=== PATIENT | female | born 1940 | race Caucasian/White ===

== ENCOUNTER 2017-02-24 09:41 | Inpatient (IN) ==
[2017-02-24] MEDS ORDERED: SODIUM CHLORIDE 0.9% 1,000 ML IV STA (10:01)
--- NOTE | 2017-02-24 10:11 | Emergency Department Note ---
Gia Sol Hilary, am scribing for, and in the presence of, Rogelio Grey MD 10: 04. Matilda Sol James D, MD, personally performed the services described in this documentation, ascribed by Zenia Nielsen in my presence, and it is both accurate and complete . Arrival - Arrival Chief Complaint: Non-Specific Stated Complaint: bp,shaking,swelling ED Nursing Triage Note: reports recently in hospital for sepsis and finished antibiotics today. family reports that pt started shaking this am and had fever and is nauseated. Mode of Arrival: Wheelchair Limitations: No Limitations Source: Patient, RN Notes Reviewed Time Seen by Provider: 02/24/17 09:56 - History of Present Illness HPI Narrative: Pt is a 76 y/o presenting to the ED with c/o shaking and nausea which onset this morning. Pt was recently in the hospital for sepsis and finished her antibiotics today. She confirms shaking, fever, nausea and left leg pain but denies coughing or dysuria. Pt has a PMHx of HTN, TIA, Dyslipidemia, Pacemaker and COPD. No other complaints or problems stated in the ED. Onset (ago): hour(s) Consistency: constant Severity: mild Severity scale (1-10): 1 Allergies/Adverse Reactions: Allergies Allergy/AdvReac Type Severity Reaction Status Date / Time No Known Allergies Allergy Verified 02/17/17 19:32 Home Medications: Home Medications Medication Instructions Recorded Confirmed Type Gabapentin Cap/Tab [Neurontin 900 mg PO BID 10/16/14 02/18/17 History Cap/Tab] Metoprolol Succinate Xl [Toprol Xl] 100 mg PO QAM 10/16/14 02/18/17 History NIFEdipine [Adalat cc] 90 mg PO BEDTIME 10/16/14 02/18/17 History Aspirin EC Tab 81 mg PO QAM 11/24/16 02/18/17 History Budesonide/Formoterol 160-4.5 2 puff INH BID 11/24/16 02/18/17 History [Symbicort 160-4.5] Cyanocobalamin (Vitamin B-12) 2,500 mcg PO DAILY 11/24/16 02/18/17 History [Vitamin B12] Cyproheptadine Tab [Periactin Tab] 4 mg PO TID 11/24/16 02/18/17 History Donepezil HCl 5 mg PO QPM 11/24/16 02/18/17 History Triamterene/Hctz 75-50 Tab 1 tablet PO QAM 11/24/16 02/18/17 History [Maxzide 75-50] raNITIdine HCl [Ranitidine HCl] 300 mg PO BEDTIME 11/24/16 02/18/17 History Ascorbic Acid Tab [Vitamin C Tab] 1,000 mg PO DAILY 02/17/17 02/18/17 History Cholecalciferol (Vitamin D3) 2,000 unit PO DAILY 02/17/17 02/18/17 History [Vitamin D3] HYDROcodone/ACETAMIN 5-325 [[place] 1 tablet PO Q6H PRN #20 tablet 02/17/17 Rx 5-325] Rosuvastatin [Crestor] 10 mg PO QAM 02/17/17 02/18/17 History Amoxicillin 500 mg PO TID #5 tablet 02/22/17 Rx Review of System - Review of System 12 point system: reviewed and no additional remarkable complaints except as stated - Review of System Constitutional: Present: fever, other (Shaking) Gastrointestinal: Present: nausea Genitourinary female: Absent: dysuria Musculoskeletal: Present: leg pain (left leg ) Medical,Surgical,& Family Hx - Medical History Cardio: History of: Cardiac Dysrhythmia, Hypertension, Pacemaker (new pacemaker placed June 2015), Cardiovascular Problems (dr turner) Neurology: History of: TIA No history of: Migraine, Seizures HEENT: History of: Dental Problems (Reports dentures intact) Endocrine: History of: Dyslipidemia Respiratory: History of: COPD, Pneumonia (past hx), Respiratory Problems (1/2pk day smoker) Renal: No history of: Renal Problems Genitourinary: History of: Bladder Problem (bladder sling dr castillo) Gastrointestinal: History of: GERD Musculoskeletal: History of: Back/Neck Problems, Musculoskeletal Problems ( reports back pain and wears tens unit history of back injuries) Hematology: No history of: Blood Transfusion Reaction Other: History of: Miscellaneous Medical Problems (possible claudication.) No history of: Cancer (none reported) - Surgical History Cardiac Surgeries: Sugical HX of: Cardiac Catheterization (pt reports stents), Carotid Endarterectomy (Pt reports bilateral) Thoracic Surgeries: Patient denies;: Organ Transplant HEENT Surgeries: Surgical HX of: Carotid Endarterectomy (Pt reports bilateral) Abdominal Surgeries: Surgical HX of: Appendectomy, Cholecystectomy, Colonoscopy Reproductive Surgeries: Surgical HX of;: Hysterectomy Orthopedic Surgeries: Surgical HX of;: Implanted Devices (Tens unit for back) - Family History Family History: Reports;: Family Heart Disease (father) - Social History Smoking Status: Current every day smoker Exam Physical Examination: GENERAL: This is a well-nourished, well-developed in no apparent distress. VITAL SIGNS: Temperature: 98.1 Pulse: 70 Respiratory: 24 Blood Pressure: 116 /50 O2 Sat: 79 HEENT: Head is normocephalic and atraumatic. Pupils are equally round and reactive to light. Extraocular movement are intact. Oropharynx is benign with moist mucous membranes. NECK: Neck is soft and supple without tenderness. There are no masses. There is no lymphadenopathy. LUNGS: Lungs are clear to auscultation bilaterally. Chest rises symmetrically. There is no chest wall tenderness. CV: Heart is regular rate and rhythm without murmurs, rubs, or gallops. ABDOMEN: Abdomen is soft, non-tender to palpation. There are no abnormal masses palpated. There is no organomegaly. Bowel sounds are present and active. SKIN: Skin is warm and dry. No rash. EXTREMITIES: Patient has full range of motion without tenderness. There is 1+ pitting pedal edema bilaterally. NEUROLOGIC: Awake, alert, and oriented x4. Cranial nerves II through XII are grossly intact. There are no motorsensory deficits. PSYCHIATRIC: Normal affect. Normal mood. Vital Signs: Vital Signs Temperature 98.1 F 02/24/17 09:43 Pulse Rate 70 02/24/17 09:43 Respiratory Rate 24 02/24/17 09:43 Blood Pressure 116/50 02/24/17 09:43 O2 Sat by Pulse Oximetry 79 L 02/24/17 09:43 Course - Consultations Consultation #1: Discussed with hospitalist. Patient will be admitted to their service. Time: 11:10 Results - Labs CBC & BMP: 02/24/17 10:44 Lab Results: I have reviewed the patients labs Labs: Laboratory Tests 02/24/17 10:44 WBC 20.6 H D RBC 3.89 Hgb 12.5 Hct 37.7 Plt Count 190 Neut % (Auto) 83.8 H Lymph % (Auto) 8.8 L Neut # (Auto) 17.3 H Falls # (Auto) 1.0 H - Diagnostic Findings Procedure: Chest x-ray: image reviewed by me (Left-sided infiltrate) Disposition Clinical Impression: Sepsis Case discussed with: patient Disposition: Still a Patient Condition: Stable
[2017-02-24] MEDS ORDERED: cefTRIAXone 1,000 MG in SODIUM CHLORIDE 0.9% 100 ML IV STA (10:12)
--- NOTE | 2017-02-24 10:32 | XRay Report ---
Exam: XR chest 1V portable Date: 02/24/2017 10:00 AM Indication: Fever Comparison: 02/18/2017 Technical: AP Findings: External cardiac leads are present. A left-sided cardiac pacing device with atrial ventricular leads present. Cardiomegaly is present with interstitial edema and low volume effusions present left greater than right with ASVD. A few scattered reticular nodular densities are present lung gee bilaterally. Mediastinum is intact. Impression: 1. Cardiomegaly with interstitial edema and effusions or pneumonic infiltrates present in the basilar regions bilaterally left greater than right. Superimposed component of mild CHF cannot be excluded. 2. Stepsister cardiac pacing device with ASVD. 3. Underlying granuloma changes PROCEDURE INTERPRETED AT [facility] DEPARTMENT OF RADIOLOGY Final Report Signed by: Dr. Howard Rose
[2017-02-24 11:05] LABS: Basophils # 0.1 10*3/uL (0.0-0.2); Basophils % 0.3 % (0.0-0.8); Eosinophils # 0.2 10*3/uL (0.0-0.87); Eosinophils % 0.8 % (0.00-10.9); Hematocrit 37.7 VOL% (35.7-47.0); Hemoglobin 12.5 GM/DL (12.0-16.0); Immature Granulocytes % 1.5 %; Lymphocytes # 1.8 10*3/uL (1.4-4.0); Lymphocytes % 8.8 % (21.3-54.2); Mean Corpuscular HGB Conc 33.2 GM/DL (32-36); Mean Corpuscular Hemoglobin 32 PG (27-34); Mean Corpuscular Volume 96.9 FL (87-102); Mean Platelet Volume 10.3 FL (9.6-12.0); Monocytes % 4.8 % (1.7-12.7); Neutrophils # 17.3 10*3/uL (1.4-7.4); Neutrophils % 83.8 % (38.7-73.9); Platelet Count 190 T/CUMM (130-400); Red Blood Count 3.89 MC/CUMM (3.8-5.5); Red Cell Distribution Width 15.1 % (9.3-17.3); White Blood Count 20.6 T/CUMM (4-12)
[2017-02-24] MEDS ORDERED: cefTRIAXone 1,000 MG VIAL ONE (11:14)
[2017-02-24 11:23] LABS: Apearance,Urine Slightly Hazy (Clear); Bacteria,Urine Occasional /HPF (Few); Bilirubin,Urine Negative (Negative); Blood, Urine Negative (Negative); Glucose,Urine (UA) Negative (Negative); Ketones,Urine Negative (Negative); Mucus,Urine Occasional /LPF (Occasional); Nitrite,Urine Negative (Negative); Protein,Urine Negative; RBC,Urine <1 /HPF (0-4); Squamous Epithelial Cell,Urine Occasional /HPF (0-10); Urine Color Yellow (Yellow); Urine Urobilinogen < 2.0 EU/DL (0.2-1.0); WBC,Urine <1 /HPF (0-6)
[2017-02-24 11:24] LABS: Lactic Acid 1.7 MMOL/L (0.4-2.0)
[2017-02-24 11:27] LABS: Band Neutrophils 2 % (0-10); Eosinophils 1 % (0-10); Lymphocytes 6 % (20-55); Macrocytosis Slight; Myelocytes 1 %; Segmented Neutrophils 86 % (50-85); Total Cells Counted 100
[2017-02-24 11:39] LABS: Albumin 2.7 G/DL (3.4-5.0); Bilirubin,Total 0.6 MG/DL (0.2-1.0); Osmolality,Calculated 281.8 MOS/KG (273-304); Potassium 4.7 MMOL/L (3.5-5.1)
--- NOTE | 2017-02-24 12:09 | Hospitalist History & Physical ---
Assessment and Plan (1) Sepsis Status: Acute Assessment and plan: At the time of ED presentation, the patient was noted to be tachypneic with a respiratory rate of 24 and hypoxic with an O2 saturation noted at 79. In addition, labs were obtained which were significant for white blood cell count of 20.6, BUN 35, and creatinine 1.6. Chest x-ray was significant for left upper and lower lobe infiltrates. Based on these clinical findings, the patient has met the sepsis guidelines. We will initiate the sepsis bundle. Blood cultures have been obtained. We will start empiric antibiotic coverage and await culture sensitivity reports. We will provide supportive measures.The patient has experienced episodes of hypotension during the ED encounter. Blood pressure was noted as low as 74/32. Multiple fluid boluses were given. The patient's blood pressure temporarily responded we will monitor the patient's blood pressure closely. We will gently rehydrate. Current Visit: Yes Qualifiers: Sepsis type: sepsis due to unspecified organism Qualified Code(s): A41.9 - Sepsis, unspecified organism (2) Acute renal failure Status: Acute Assessment and plan: Noted decrease in renal function noted. BUN and creatinine were noted at 35/ 1.60. Upon review of the patient's medical record, on February 21, 2017, the patient's BUN and creatinine was noted at 18/0.90. We will gently rehydrate and avoid nephrotoxic agents. We feel that the source of the patient's renal failure is primarily attributed to overwhelming infection and sepsis. Current Visit: No (3) Hypotension Status: Acute Current Visit: No History of Present Illness Chief complaint: Fever History of present illness: This is a chronically ill 76-year-old female that presented to the ED at [facility] this morning for the evaluation of low blood pressure, shaking, and swelling. The patient has a medical history significant for hypertension, transient ischemic attack, dyslipidemia, chronic obstructive pulmonary disease, current nicotine use, gastroesophageal reflux disease, and chronic lower back pain. Patient surgical history significant for heart catheterization with stent placement, carotid endarterectomy, appendectomy, cholecystectomy, colonoscopy, hysterectomy, implanted spinal stimulation device , and bladder sling placement. The time of ED presentation, the patient was altered. The family was present at bedside service historian. They reported that the patient was observed this morning "shaking, febrile, nausea, and left leg pain". They report that the patient was recently discharged from [facility] on yesterday in which she was admitted and treated for sepsis secondary to urinary tract infection. They became alarmed prompting them to transfer the patient to the ED for further evaluation. Patient was evaluated at the time of ED presentation. The patient was noted to be tachypneic with a respiratory rate noted at 24 and hypoxic with an O2 saturation noted at 79%. In addition, the patient's blood pressure was noted at 116/50. Labs were obtained which were significant for white blood cell count at 20.6, BUN 35, creatinine 1.60, glucose 118, albumin 2.7, and globulin 4.3. Urinalysis was significant for urine urobilinogen greater than 2.0, urine RBC less than 1, urine WBC less than 1, and the presence of occasional squamous epithelial, urine bacteria, and urine mucus was noted. Chest x-ray was significant for cardiomegaly with interstitial edema and effusions or pneumonic infiltrates present in the basilar regions bilaterally left greater than right and the presence of superimposed component of mild CHF cannot be excluded. In addition, stepsister cardiac pacing device with ASCVD and underlying granuloma changes were noted. After brief discussion with both Dr. Grey and Dr. Arrieta, the patient will be admitted to the hospitalist service for continuation of care. Due to the severity of the patient's presenting symptoms, the patient will be placed in the critical care setting. Home medications have been reviewed and reconciled. CODE STATUS discussed; patient is FULL CODE. At the time of ED presentation, the patient was noted to be tachypneic with a respiratory rate of 24 and hypoxic with an O2 saturation noted at 79. In addition, labs were obtained which were significant for white blood cell count of 20.6, BUN 35, and creatinine 1.6. Chest x-ray was significant for left upper and lower lobe infiltrates. The patient has experienced episodes of hypotension during the ED encounter. Blood pressure was noted as low as 74/32. Multiple fluid boluses were given. Based on these clinical findings, the patient has met the sepsis guidelines. Home Medications Medication Instructions Recorded Confirmed Type Gabapentin Cap/Tab [Neurontin 900 mg PO BID 10/16/14 02/18/17 History Cap/Tab] Metoprolol Succinate Xl [Toprol Xl] 100 mg PO QAM 10/16/14 02/18/17 History NIFEdipine [Adalat cc] 90 mg PO BEDTIME 10/16/14 02/18/17 History Aspirin EC Tab 81 mg PO QAM 11/24/16 02/18/17 History Budesonide/Formoterol 160-4.5 2 puff INH BID 11/24/16 02/18/17 History [Symbicort 160-4.5] Cyanocobalamin (Vitamin B-12) 2,500 mcg PO DAILY 11/24/16 02/18/17 History [Vitamin B12] Cyproheptadine Tab [Periactin Tab] 4 mg PO TID 11/24/16 02/18/17 History Donepezil HCl 5 mg PO QPM 11/24/16 02/18/17 History Triamterene/Hctz 75-50 Tab 1 tablet PO QAM 11/24/16 02/18/17 History [Maxzide 75-50] raNITIdine HCl [Ranitidine HCl] 300 mg PO BEDTIME 11/24/16 02/18/17 History Ascorbic Acid Tab [Vitamin C Tab] 1,000 mg PO DAILY 02/17/17 02/18/17 History Cholecalciferol (Vitamin D3) 2,000 unit PO DAILY 02/17/17 02/18/17 History [Vitamin D3] HYDROcodone/ACETAMIN 5-325 [[place] 1 tablet PO Q6H PRN #20 tablet 02/17/17 Rx 5-325] Rosuvastatin [Crestor] 10 mg PO QAM 02/17/17 02/18/17 History Amoxicillin 500 mg PO TID #5 tablet 02/22/17 Rx Allergies Allergy/AdvReac Type Severity Reaction Status Date / Time No Known Allergies Allergy Verified 02/17/17 19:32 Medical,Surgical,& Family Hx - Medical History Cardio: History of: Cardiac Dysrhythmia, Hypertension, Pacemaker (new pacemaker placed June 2015), Cardiovascular Problems (dr turner) Neurology: History of: TIA No history of: Migraine, Seizures HEENT: History of: Dental Problems (Reports dentures intact) Endocrine: History of: Dyslipidemia Respiratory: History of: COPD, Pneumonia (past hx), Respiratory Problems (1/2pk day smoker) Renal: No history of: Renal Problems Genitourinary: History of: Bladder Problem (bladder sling dr castillo) Gastrointestinal: History of: GERD Musculoskeletal: History of: Back/Neck Problems, Musculoskeletal Problems ( reports back pain and wears tens unit history of back injuries) Hematology: No history of: Blood Transfusion Reaction Other: History of: Miscellaneous Medical Problems (possible claudication.) No history of: Cancer (none reported) - Surgical History Cardiac Surgeries: Sugical HX of: Cardiac Catheterization (pt reports stents), Carotid Endarterectomy (Pt reports bilateral) Thoracic Surgeries: Patient denies;: Organ Transplant HEENT Surgeries: Surgical HX of: Carotid Endarterectomy (Pt reports bilateral) Abdominal Surgeries: Surgical HX of: Appendectomy, Cholecystectomy, Colonoscopy Reproductive Surgeries: Surgical HX of;: Hysterectomy Orthopedic Surgeries: Surgical HX of;: Implanted Devices (Tens unit for back) - Family History Family History: Reports;: Family Heart Disease (father) - Social History Smoking Status: Current every day smoker Have you smoked in the last 12 months: Yes Time spent discussing smoking cessation with patient: 3 to 10 minutes (8 miutes) Frequency of Alcohol Use: None Type of Drug Use: None Marital Status: Lives With:: Spouse Functional capacity: independent ambulation 12 point system: reviewed and no additional remarkable complaints except as stated Exam - Constitutional Vitals: Period Temp Pulse Resp BP Sys/Stoddard Pulse Ox Last 24 Hr 98.1 F 70 24 116/50 79 General appearance: no acute distress, over weight - Head Head exam: Present: normal inspection, normocephalic, atraumatic - Eye Eye exam: Present: EOMI. Absent: conjunctival injection Pupils: Present: FERMIN, normal accommodation - ENT ENT exam: Present: normal exam, normal external ear exam, normal oropharynx - Neck Neck exam: Present: normal inspection. Absent: lymphadenopathy, meningismus, thyromegaly - Respiratory Respiratory exam: Present: clear to auscultation bilaterally. Absent: rales, rhonchi, stridor, wheezes - Cardiovascular Cardiovascular exam: Present: regular rate and rhythm. Absent: carotid bruit, diastolic murmur, gallop, JVD, rubs, systolic murmur - GI/Abdominal GI/Abdominal exam: Present: normal bowel sounds, tenderness (Suprapubic tenderness secondary to recent pubis ramus fracture), soft - Extremities Exam Extremities exam: Present: normal inspection. Absent: edema - Back Exam Back exam: Present: normal inspection - Neurological Exam Neurological exam: Present: alert, oriented X3, CN II-XII intact - Psychiatric Psychiatric exam: Present: normal affect, normal mood - Skin Skin exam: Present: normal color, warm, dry Results - Labs CBC & BMP: 02/24/17 10:44 02/24/17 10:44 Lab Results: I have reviewed the past 24 hour labs Sepsis - Sepsis Classification of Sepsis: Sepsis Possible / Suspected infection from: Left lower lobe pneumonia - Physical Exam Physical Exam: At the time of ED presentation, the patient was noted to be tachypneic with a respiratory rate of 24 and hypoxic with an O2 saturation noted at 79. In addition, labs were obtained which were significant for white blood cell count of 20.6, BUN 35, and creatinine 1.6. Chest x-ray was significant for left upper and lower lobe infiltrates. Based on these clinical findings, the patient has met the sepsis guidelines. We will initiate the sepsis bundle. - Physical Exam Respiratory exam: decreased breath sounds Capillary Refill: Less Than 3 Seconds Peripheral pulses: Radial (L): 1+, Radial (R): 1+, Dorsalis Pedis (L) PM: 1+, Dorsalis Pedis (R) PM: 1+, Posterior Tibialis (L): 1+, Posterior Tibialis (R): 1 + Cardiovascular exam: regular rate and rhythm Skin exam: normal color
[2017-02-24] MEDS ORDERED: SODIUM CHLORIDE 0.9% 1,750 ML IV ONE (12:28)
[2017-02-24] MEDS ORDERED: AZITHROMYCIN INJ 500 MG in SODIUM CHLORIDE 0.9% 250 ML IV SCH (12:30)
[2017-02-24 13:11] LABS: ABG Base Excess -0.9 MMOL/L (-2.5-2.5); ABG HCO3 24.9 MMOL/L (20-26); ABG Oxygen Saturation 86.2 % (95-100); ABG PCO2 45.8 MM HG (35-48); ABG PH 7.353 (7.35-7.45); ABG PO2 49.5 MM HG (80-95); ABG TCO2 26.3 MMOL/L (23-27)
[2017-02-24] MEDS ORDERED: ACETAMINOPHEN 325 MG TABLET PO PRN (15:10)
[2017-02-24] MEDS: AZITHROMYCIN INJ 500 MG in SODIUM CHLORIDE 0.9% 250 ML IV SCH (15:45)
[2017-02-24] MEDS: ENOXAPARIN 30 MG/0.3 ML SYRINGE SUBCUT SCH (15:45)
[2017-02-24] MEDS: SODIUM CHLORIDE 0.9% 1,000 ML IV SCH (16:17)
[2017-02-24] MEDS: AMPICILLIN INJ 1,000 MG in SODIUM CHLORIDE 0.9% 100 ML IV SCH ×2 (16:36→21:54)
[2017-02-25 03:12] LABS: Basophils % 0.2 % (0.0-0.8); Eosinophils # 0.2 10*3/uL (0.0-0.87); Eosinophils % 1.2 % (0.00-10.9); Hematocrit 33.1 VOL% (35.7-47.0); Hemoglobin 10.3 GM/DL (12.0-16.0); Immature Granulocytes Absolute 0.13 #; Lymphocytes % 15.7 % (21.3-54.2); Mean Corpuscular HGB Conc 31.1 GM/DL (32-36); Mean Corpuscular Hemoglobin 32 PG (27-34); Mean Corpuscular Volume 102.8 FL (87-102); Mean Platelet Volume 10.5 FL (9.6-12.0); Monocytes # 0.8 10*3/uL (0.11-0.8); Monocytes % 6.4 % (1.7-12.7); Neutrophils # 9.8 10*3/uL (1.4-7.4); Neutrophils % 75.5 % (38.7-73.9); Platelet Count 133 T/CUMM (130-400); Red Blood Count 3.22 MC/CUMM (3.8-5.5); Red Cell Distribution Width 15.5 % (9.3-17.3); White Blood Count 12.9 T/CUMM (4-12)
[2017-02-25 03:16] LABS: Calcium 7.5 MG/DL (8.5-10.1); Osmolality,Calculated 288.8 MOS/KG (273-304); Potassium 4.2 MMOL/L (3.5-5.1)
[2017-02-25] MEDS: AMPICILLIN INJ 1,000 MG in SODIUM CHLORIDE 0.9% 100 ML IV SCH ×4 (03:39→23:35)
[2017-02-25] MEDS: SODIUM CHLORIDE 0.9% 1,000 ML IV SCH ×4 (05:13→18:23)
[2017-02-25] MEDS ORDERED: HEPARIN/NACL 0.9% 2 UNITS/ML 500 ML IV ONE (05:16)
--- NOTE | 2017-02-25 08:28 | XRay Report ---
Portable chest Exam date: 02/25/2017 4:00 AM Indication: Shortness of breath, cough Comparison: Previous day at 1010 hours Findings: Cardiomediastinal contours are stable with no change in pacemaker placement. No change in the pleural and parenchymal opacities obscuring the left hemidiaphragm. Improved aeration of the right lung base. No acute osseous abnormalities. Visualized upper abdomen demonstrates no acute pathology. Impression: Improved aeration within the right lung base with no change in the pleural and parenchymal opacities on the left PROCEDURE INTERPRETED AT [facility] DEPARTMENT OF RADIOLOGY Final Report Signed by: Haris Moy
[2017-02-25] MEDS: PANTOPRAZOLE 40 MG TABLET PO SCH (08:52)
[2017-02-25] MEDS ORDERED: cefTRIAXone 1,000 MG in SODIUM CHLORIDE 0.9% 100 ML IV SCH (10:00)
[2017-02-25] MEDS: AZITHROMYCIN INJ 500 MG in SODIUM CHLORIDE 0.9% 250 ML IV SCH (15:35)
--- NOTE | 2017-02-25 16:10 | Hospitalist Progress Note ---
Assessment and Plan (1) Aspiration pneumonia Status: Acute Assessment and plan: The patient is now ready for transfer to the floor. We will continue with ampicillin for treatment of enterococcal UTI and aspiration pneumonia. The patient will continue with Zithromax. I am going to begin adding back her antihypertensive regimen as blood pressure is increasing. Will recheck electrolytes tomorrow. Current Visit: Yes (2) Chronic obstructive pulmonary disease Status: Chronic Current Visit: No Hospitalist: Subjective Interval history: The patient is stable today. Her breathing has improved. She still has some rhonchi in the right greater than left lower lung field. With deep breathing the rhonchi clear. The patient seems to have had an aspiration episode. Exam - Constitutional Vitals: Period Temp Pulse Resp BP Sys/Stoddard Pulse Ox Last 24 Hr 97.2 F-98.9 F 69-90 14-22 95-145/47-76 88-100 Exam: Constitutional System: Minimal distress. No tremulousness. Head: Normocephalic, atraumatic. Ears, Nose and Throat System: No evidence of Otitis or Mastoiditis. No epistaxis or discharge Eyes System: Pupils equal, round, and reactive. Extraocular muscles intact. Neck: Supple, without adenopathy, No jugular venous distention. No thyromegaly , neck mass, or prior surgery apparent. Respiratory System: Chest few rhonchi bilateral lower lobes to auscultation. Cardiovascular System: Heart with regular rate and rhythm. No murmur. GI System: Abdomen soft, nontender. Normo active bowel sounds present. Results - Labs CBC & BMP: 02/25/17 02:18 02/25/17 02:18 Lab Results: I have reviewed the past 24 hour labs
[2017-02-25] MEDS: ENOXAPARIN 30 MG/0.3 ML SYRINGE SUBCUT SCH (16:51)
[2017-02-25] MEDS: DONEPEZIL 5 MG TABLET PO SCH (18:53)
[2017-02-25] MEDS: CYPROHEPTADINE 4 MG TABLET PO SCH (22:53)
[2017-02-25] MEDS: BUDESONIDE/FORMOTEROL 160-4.5 INHALER 6 GM INH SCH (22:54)
[2017-02-26 03:52] LABS: Basophils % 0.2 % (0.0-0.8); Eosinophils # 0.1 10*3/uL (0.0-0.87); Hematocrit 28.6 VOL% (35.7-47.0); Hemoglobin 9.4 GM/DL (12.0-16.0); Immature Granulocytes % 0.8 %; Immature Granulocytes Absolute 0.11 #; Lymphocytes % 15.4 % (21.3-54.2); Mean Corpuscular HGB Conc 32.9 GM/DL (32-36); Mean Corpuscular Hemoglobin 32 PG (27-34); Mean Corpuscular Volume 97.6 FL (87-102); Mean Platelet Volume 10.5 FL (9.6-12.0); Monocytes # 0.9 10*3/uL (0.11-0.8); Monocytes % 6.8 % (1.7-12.7); Neutrophils % 75.8 % (38.7-73.9); Platelet Count 186 T/CUMM (130-400); Red Blood Count 2.93 MC/CUMM (3.8-5.5); Red Cell Distribution Width 14.8 % (9.3-17.3); White Blood Count 13.2 T/CUMM (4-12)
[2017-02-26] MEDS: AMPICILLIN INJ 1,000 MG in SODIUM CHLORIDE 0.9% 100 ML IV SCH ×4 (04:14→22:30)
[2017-02-26 04:19] LABS: Calcium 8.1 MG/DL (8.5-10.1); Magnesium 1.9 MG/DL (1.8-2.4); Osmolality,Calculated 293.4 MOS/KG (273-304); Potassium 4.6 MMOL/L (3.5-5.1)
[2017-02-26] MEDS: SODIUM CHLORIDE 0.9% 1,000 ML IV SCH ×2 (07:40→21:00)
[2017-02-26] MEDS: ASPIRIN EC 81 MG TABLET PO SCH (10:55)
[2017-02-26] MEDS: TRIAMTERENE/HCTZ 75-50 MG TABLET PO SCH (10:56)
[2017-02-26] MEDS: PANTOPRAZOLE 40 MG TABLET PO SCH (10:56)
[2017-02-26] MEDS: CYPROHEPTADINE 4 MG TABLET PO SCH ×3 (10:56→21:28)
[2017-02-26] MEDS: CYANOCOBALAMIN 500 MCG TABLET PO SCH (10:57)
[2017-02-26] MEDS: ASCORBIC ACID 500 MG TABLET PO SCH (10:58)
[2017-02-26] MEDS: CHOLECALCIFEROL 1,000 UNIT TABLET PO SCH (10:58)
[2017-02-26] MEDS: BUDESONIDE/FORMOTEROL 160-4.5 INHALER 6 GM INH SCH ×2 (11:00→21:45)
--- NOTE | 2017-02-26 12:07 | Hospitalist Progress Note ---
Assessment and Plan (1) Aspiration pneumonia Status: Acute Assessment and plan: The patient is now transferred to the floor. Her pelvis fracture keeps her from getting up independently and caused a great deal of pain for transfers to the toilet. I reviewed the case history and plan of care with the patient the patient's and the patient's son at the bedside. I am going to continue IV ampicillin, change Zithromax to pill, and request upper caser arrange swing bed for the patient at the time of discharge. Current Visit: Yes (2) Chronic obstructive pulmonary disease Status: Chronic Current Visit: No Hospitalist: Subjective Interval history: The patient is admitted to the hospital with sepsis syndrome. She is improving with treatment of aspiration pneumonia and enterococcal UTI. The patient has been on IV ampicillin and IV azithromycin. The patient has complaint of pelvis pain due to previous left pelvis fracture. Exam - Constitutional Vitals: Period Temp Pulse Resp BP Sys/Stoddard Pulse Ox Last 24 Hr 97.4 F-99.5 F 72-95 14-23 109-189/59-88 88-96 Exam: Constitutional System: Minimal distress. No tremulousness. Head: Normocephalic, atraumatic. Ears, Nose and Throat System: No evidence of Otitis or Mastoiditis. No epistaxis or discharge Eyes System: Pupils equal, round, and reactive. Extraocular muscles intact. Neck: Supple, without adenopathy, No jugular venous distention. No thyromegaly , neck mass, or prior surgery apparent. Respiratory System: Chest few rhonchi bilateral lower lobes to auscultation. Cardiovascular System: Heart with regular rate and rhythm. No murmur. GI System: Abdomen soft, nontender. Normo active bowel sounds present. Results - Labs CBC & BMP: 02/26/17 02:43 02/26/17 02:43 Lab Results: I have reviewed the past 24 hour labs
[2017-02-26] MEDS ORDERED: KETOROLAC 30 MG/1 ML VIAL IV ONE (14:28)
[2017-02-26] MEDS ORDERED: MORPHINE 2 MG/1 ML SYRINGE IV PRN (14:29)
[2017-02-26] MEDS: ENOXAPARIN 40 MG/0.4 ML SYRINGE SUBCUT SCH (14:55)
[2017-02-26] MEDS: DONEPEZIL 5 MG TABLET PO SCH (21:28)
[2017-02-26] MEDS: KETOROLAC 15 MG/1 ML VIAL IV SCH (21:28)
[2017-02-27] MEDS: SODIUM CHLORIDE 0.9% 1,000 ML IV SCH ×2 (02:43→20:34)
[2017-02-27] MEDS: KETOROLAC 15 MG/1 ML VIAL IV SCH ×4 (02:44→20:28)
[2017-02-27] MEDS: AMPICILLIN INJ 1,000 MG in SODIUM CHLORIDE 0.9% 100 ML IV SCH ×4 (04:04→23:39)
[2017-02-27] MEDS: MORPHINE 2 MG/1 ML SYRINGE IV PRN (05:24)
[2017-02-27] MEDS: ONDANSETRON 4 MG/2 ML VIAL IV PRN (05:26)
[2017-02-27 05:43] LABS: Basophils % 0.3 % (0.0-0.8); Eosinophils # 0.1 10*3/uL (0.0-0.87); Eosinophils % 1.1 % (0.00-10.9); Hematocrit 33.5 VOL% (35.7-47.0); Hemoglobin 11.2 GM/DL (12.0-16.0); Immature Granulocytes % 0.8 %; Immature Granulocytes Absolute 0.08 #; Lymphocytes % 20.5 % (21.3-54.2); Mean Corpuscular HGB Conc 33.4 GM/DL (32-36); Mean Corpuscular Hemoglobin 32 PG (27-34); Monocytes # 0.6 10*3/uL (0.11-0.8); Monocytes % 6.5 % (1.7-12.7); Neutrophils # 6.9 10*3/uL (1.4-7.4); Neutrophils % 70.8 % (38.7-73.9); Platelet Count 232 T/CUMM (130-400); Red Blood Count 3.49 MC/CUMM (3.8-5.5); Red Cell Distribution Width 15.1 % (9.3-17.3); White Blood Count 9.8 T/CUMM (4-12)
[2017-02-27 06:16] LABS: Calcium 8.7 MG/DL (8.5-10.1); Magnesium 1.8 MG/DL (1.8-2.4); Osmolality,Calculated 290.6 MOS/KG (273-304); Potassium 3.6 MMOL/L (3.5-5.1)
[2017-02-27] MEDS: ASPIRIN EC 81 MG TABLET PO SCH (09:36)
[2017-02-27] MEDS: CYANOCOBALAMIN 500 MCG TABLET PO SCH (09:37)
[2017-02-27] MEDS: PANTOPRAZOLE 40 MG TABLET PO SCH (09:37)
[2017-02-27] MEDS: CYPROHEPTADINE 4 MG TABLET PO SCH ×3 (09:37→20:27)
[2017-02-27] MEDS: TRIAMTERENE/HCTZ 75-50 MG TABLET PO SCH (09:37)
[2017-02-27] MEDS: ASCORBIC ACID 500 MG TABLET PO SCH (09:38)
[2017-02-27] MEDS: CHOLECALCIFEROL 1,000 UNIT TABLET PO SCH (09:38)
[2017-02-27] MEDS: AZITHROMYCIN 250 MG TABLET PO SCH (09:39)
[2017-02-27] MEDS: BUDESONIDE/FORMOTEROL 160-4.5 INHALER 6 GM INH SCH ×2 (09:47→20:31)
--- NOTE | 2017-02-27 11:20 | Hospitalist Progress Note ---
Assessment and Plan - Time spent with patient Time spent with patient: Less than 30 minutes (1) Pelvic fracture Status: Acute Assessment and plan: 76-year-old white female with history of hypertension, TIA, dyslipidemia, COPD, tobacco abuse, GERD, and chronic low back pain admitted by the hospitalist service on 02/24/2017 with sepsis due to aspiration pneumonia and UTI. Her sepsis is resolved and she is now on the floor. She is afebrile and her vital signs are stable. She also sustained a pelvic fracture during a fall during her illness and she has significant pain from this. Her pain is better controlled today. Toradol and morphine were added to her regimen last night. She is undergoing physical therapy and will be transferred to swing bed when bed becomes available. Discussed with Dr. Arrieta. Current Visit: Yes (2) Sepsis Status: Acute Current Visit: No (3) Urinary tract infection Status: Resolved Current Visit: No (4) Acute renal failure Status: Acute Current Visit: No (5) Aspiration pneumonia Status: Acute Current Visit: Yes Hospitalist: Subjective Interval history: Patient feeling a little bit better today. She is tolerating a diet and drinking plenty of fluids. She states her pain is under better control today but she is still having difficulty walking with walker. She is prepared to go to swing bed. Exam - Constitutional Vitals: Period Temp Pulse Resp BP Sys/Stoddard Pulse Ox Last 24 Hr 97.3 F-98.2 F 64-79 16-20 115-189/59-82 91-98 Exam: 76-year-old white female, no acute distress, oriented Chest clear CV regular rate and rhythm Abdomen soft and nontender Extremities no edema Results - Labs CBC & BMP: 02/27/17 05:06 02/27/17 05:06 Lab Results: I have reviewed the past 24 hour labs
[2017-02-27] MEDS: ENOXAPARIN 40 MG/0.4 ML SYRINGE SUBCUT SCH (15:42)
[2017-02-27] MEDS: DONEPEZIL 5 MG TABLET PO SCH (20:28)
[2017-02-28] MEDS: KETOROLAC 15 MG/1 ML VIAL IV SCH ×4 (02:31→19:22)
[2017-02-28] MEDS: AMPICILLIN INJ 1,000 MG in SODIUM CHLORIDE 0.9% 100 ML IV SCH ×4 (04:57→22:52)
[2017-02-28] MEDS: ASCORBIC ACID 500 MG TABLET PO SCH (08:54)
[2017-02-28] MEDS: AZITHROMYCIN 250 MG TABLET PO SCH (08:55)
[2017-02-28] MEDS: ASPIRIN EC 81 MG TABLET PO SCH (08:55)
[2017-02-28] MEDS: PANTOPRAZOLE 40 MG TABLET PO SCH (08:55)
[2017-02-28] MEDS: CYANOCOBALAMIN 500 MCG TABLET PO SCH (08:55)
[2017-02-28] MEDS: CHOLECALCIFEROL 1,000 UNIT TABLET PO SCH (08:56)
[2017-02-28] MEDS: CYPROHEPTADINE 4 MG TABLET PO SCH ×3 (08:56→20:20)
[2017-02-28] MEDS: TRIAMTERENE/HCTZ 75-50 MG TABLET PO SCH (09:05)
[2017-02-28] MEDS: BUDESONIDE/FORMOTEROL 160-4.5 INHALER 6 GM INH SCH ×2 (09:12→20:20)
--- NOTE | 2017-02-28 10:54 | Physician Query Form ---
CLICK EDIT DOCUMENT TO SELECT QUERY ANSWER --> OK --> SIGN Aracely Murguia RN [facility] [employer] W) [phone] (f) [phone] [email or web address] PROVIDERS: Make your selection(s) from the choices in EACH section by typing an "x" and enter comments in the comment section. Please use your independent medical judgment in providing your response. This request does not imply that any particular answer is desired or expected. CLINICAL INDICATORS: (Providers should not edit this section) Based on documentation of "Hypoxic with an O2 Saturation of 79%" Oxygen applied NC at 4 to 5 L/NC. CPAP used. Sats up to 94%. If possible, please further clarify the type and acuity of respiratory diagnosis : ACUITY: (x ) Acute ( ) Chronic ( ) Acute on Chronic TYPE: ( x) Respiratory failure with hypoxia ( ) Respiratory failure with hypercapnia ( ) Respiratory Arrest ( ) Postprocedural/postoperative respiratory failure ( ) Respiratory Insufficiency ( ) ARDS (Adult/Acute Respiratory Distress Syndrome) ( ) Other, please specify: ( ) Clinically unable to determine Recognized criteria for respiratory failure PH <7.35 or >7.45 PO2 <60 PCO2 >50 RR >24 O2 Sat <90% on RA or <95% on O2 Use of accessory muscles Unable to speak in full sentences Intubation is not required COMMENTS: PLEASE ALSO DOCUMENT RESPONSE IN PROGRESS NOTES AND/OR DISCHARGE SUMMARY Use of terms such as suspected, likely, or probable (associated with a specific diagnosis that is being evaluated, monitored, or treated as if it exists) are acceptable and can be restated in the discharge summary if not ruled out. MTDD
[2017-02-28] MEDS ORDERED: PNEUMOCOCCAL VACCINE (13 VALENT) 0.5 ML SYRINGE IM ONE (15:00)
[2017-02-28] MEDS: ENOXAPARIN 40 MG/0.4 ML SYRINGE SUBCUT SCH (15:34)
--- NOTE | 2017-02-28 17:11 | Hospitalist Progress Note ---
Hospitalist: Subjective Interval history: Patient is awake and comfortable Exam - Constitutional Vitals: Period Temp Pulse Resp BP Sys/Stoddard Pulse Ox Last 24 Hr 97.2 F-98.2 F 61-69 16-20 93-133/47-65 87-97 Exam: General: No Acute Distress HEENT: Normocephalic, atraumatic, Extra ocular movements intact Neck: Supple, No JVD Chest: Clear to auscultation B/L CV: S1 + S2 audible without murmur, gallop or rub Abd: soft, NT, Non-distended, BS + Ext: No edema Skin: No purpura, bruising or rash Rheumatologic: No Joint deformities Neurologic: Strength 5/5 all extremities, no gross sensory deficits Results - Labs CBC & BMP: 02/27/17 05:06 02/27/17 05:06 - Impressions Aspiration pneumonia Status: Acute Current Visit: Yes On ampicillin and Zithromax Chronic obstructive pulmonary disease Status: Chronic Current Visit: No Continue Symbicort Pelvic fracture Status: Acute Assessment and plan: Pain control with Toradol and [place] and IV morphine as needed, continue PT, swing bed placement Current Visit: Yes Chronic osteopenia Status: Chronic Current Visit: No On vitamin D supplement Essential hypertension Status: Chronic Current Visit: Yes Controlled on Procardia and maxzide, continue DVT prophylaxis with Lovenox
[2017-02-28] MEDS: DONEPEZIL 5 MG TABLET PO SCH (19:21)
--- NOTE | 2017-02-28 19:27 | XRay Report ---
History: Pneumonia Date: 02/28/2017 Study: Chest x-ray AP portable Comparison exam: February 25, 2017 There is mild cardiomegaly. The mediastinal contours are unchanged. The pulmonary vasculature is slightly prominent. There is some increasing patchy and hazy edema and mild pleural effusion over the lower lungs. A left subclavian dual-lead transvenous pacemaker is stable. Osseous structures are unchanged. Impression: Increasing bibasilar edema/infiltrate and mild bilateral pleural effusion compared to the previous study. There is thought to be at least an element of heart failure/fluid overload present PROCEDURE INTERPRETED AT [facility] DEPARTMENT OF RADIOLOGY Final Report Signed by: Dr. Una Menon
[2017-02-28] MEDS: MORPHINE 2 MG/1 ML SYRINGE IV PRN (20:20)
[2017-03-01] MEDS: KETOROLAC 15 MG/1 ML VIAL IV SCH ×3 (02:28→13:34)
[2017-03-01] MEDS: AMPICILLIN INJ 1,000 MG in SODIUM CHLORIDE 0.9% 100 ML IV SCH ×4 (04:00→22:23)
[2017-03-01] MEDS: CYANOCOBALAMIN 500 MCG TABLET PO SCH (09:33)
[2017-03-01] MEDS: CHOLECALCIFEROL 1,000 UNIT TABLET PO SCH (09:33)
[2017-03-01] MEDS: PANTOPRAZOLE 40 MG TABLET PO SCH (09:33)
[2017-03-01] MEDS: ASCORBIC ACID 500 MG TABLET PO SCH (09:33)
[2017-03-01] MEDS: ASPIRIN EC 81 MG TABLET PO SCH (09:34)
[2017-03-01] MEDS: CYPROHEPTADINE 4 MG TABLET PO SCH ×3 (09:34→21:11)
[2017-03-01] MEDS: BUDESONIDE/FORMOTEROL 160-4.5 INHALER 6 GM INH SCH ×2 (09:34→21:12)
[2017-03-01] MEDS: FUROSEMIDE 20 MG TABLET PO SCH (09:34)
[2017-03-01] MEDS: AZITHROMYCIN 250 MG TABLET PO SCH (09:34)
[2017-03-01] MEDS: TRIAMTERENE/HCTZ 75-50 MG TABLET PO SCH (09:34)
[2017-03-01] MEDS: SODIUM CHLORIDE 0.9% 1,000 ML IV SCH (09:36)
--- NOTE | 2017-03-01 15:22 | Hospitalist Progress Note ---
Hospitalist: Subjective Interval history: Patient reports that her breathing is fine but does have pain especially when getting physical therapy as she has pelvic fractures. Exam - Constitutional Vitals: Period Temp Pulse Resp BP Sys/Stoddard Pulse Ox Last 24 Hr 97.3 F-97.8 F 67-90 18-20 104-133/56-65 90-97 Exam: General: No Acute Distress HEENT: Normocephalic, atraumatic, Extra ocular movements intact Neck: Supple, No JVD Chest: Clear to auscultation B/L CV: S1 + S2 audible without murmur, gallop or rub Abd: soft, NT, Non-distended, BS + Ext: No edema Skin: No purpura, bruising or rash Rheumatologic: No Joint deformities Neurologic: Strength 5/5 all extremities, no gross sensory deficits Results - Labs CBC & BMP: 02/27/17 05:06 02/27/17 05:06 - Impressions - Impressions Aspiration pneumonia Status: Acute Current Visit: Yes On ampicillin and Zithromax Chronic obstructive pulmonary disease Status: Chronic Current Visit: No Continue Symbicort Pelvic fracture Status: Acute Assessment and plan: Pain control with Toradol and [place] as needed, continue PT, swing bed placement Current Visit: Yes Chronic osteopenia Status: Chronic Current Visit: No On vitamin D supplement Essential hypertension Status: Chronic Current Visit: Yes Controlled on Procardia and maxzide, continue DVT prophylaxis with Lovenox
[2017-03-01] MEDS: ENOXAPARIN 40 MG/0.4 ML SYRINGE SUBCUT SCH (17:08)
[2017-03-01] MEDS: DONEPEZIL 5 MG TABLET PO SCH (18:26)
[2017-03-02] MEDS: AMPICILLIN INJ 1,000 MG in SODIUM CHLORIDE 0.9% 100 ML IV SCH ×4 (04:14→21:24)
[2017-03-02] MEDS: CHOLECALCIFEROL 1,000 UNIT TABLET PO SCH (08:21)
[2017-03-02] MEDS: AZITHROMYCIN 250 MG TABLET PO SCH (08:21)
[2017-03-02] MEDS: FUROSEMIDE 20 MG TABLET PO SCH (08:21)
[2017-03-02] MEDS: ASCORBIC ACID 500 MG TABLET PO SCH (08:21)
[2017-03-02] MEDS: CYPROHEPTADINE 4 MG TABLET PO SCH ×3 (08:21→21:22)
[2017-03-02] MEDS: TRIAMTERENE/HCTZ 75-50 MG TABLET PO SCH (08:21)
[2017-03-02] MEDS: PANTOPRAZOLE 40 MG TABLET PO SCH (08:22)
[2017-03-02] MEDS: ASPIRIN EC 81 MG TABLET PO SCH (08:22)
[2017-03-02] MEDS: CYANOCOBALAMIN 500 MCG TABLET PO SCH (08:22)
[2017-03-02] MEDS: BUDESONIDE/FORMOTEROL 160-4.5 INHALER 6 GM INH SCH ×2 (08:24→21:23)
[2017-03-02] MEDS: ONDANSETRON 4 MG/2 ML VIAL IV PRN (10:16)
[2017-03-02] MEDS: ENOXAPARIN 40 MG/0.4 ML SYRINGE SUBCUT SCH (14:59)
--- NOTE | 2017-03-02 16:35 | Hospitalist Progress Note ---
Hospitalist: Subjective Interval history: Patient is feeling better, pelvic pain is controlled Exam - Constitutional Vitals: Period Temp Pulse Resp BP Sys/Stoddard Pulse Ox Last 24 Hr 97.3 F-99.1 F 61-73 16-20 107-142/55-76 90-97 Exam: General: No Acute Distress HEENT: Normocephalic, atraumatic, Extra ocular movements intact Neck: Supple, No JVD Chest: Clear to auscultation B/L CV: S1 + S2 audible without murmur, gallop or rub Abd: soft, NT, Non-distended, BS + Ext: No edema Skin: No purpura, bruising or rash Rheumatologic: No Joint deformities Neurologic: Strength 5/5 all extremities, no gross sensory deficits Results - Labs CBC & BMP: 02/27/17 05:06 02/27/17 05:06 - Impressions - Impressions Aspiration pneumonia Status: Acute Current Visit: Yes On ampicillin and Zithromax Chronic obstructive pulmonary disease Status: Chronic Current Visit: No Continue Symbicort Pelvic fracture Status: Acute Assessment and plan: Pain control with Toradol and [place] as needed, continue PT, swing bed placement Current Visit: Yes Chronic osteopenia Status: Chronic Current Visit: No On vitamin D supplement Essential hypertension Status: Chronic Current Visit: Yes Controlled on Procardia and maxzide, continue DVT prophylaxis with Lovenox
[2017-03-02] MEDS: DONEPEZIL 5 MG TABLET PO SCH (17:59)
--- NOTE | 2017-03-02 18:36 | XRay Report ---
History: Pneumonia Date: 03/02/2017 Study: Chest x-ray AP portable Comparison exam: February 28, 2017 A left subclavian dual-lead transvenous pacemaker is stable in appearance and is generally intact. There is stable mild cardiomegaly. The mediastinal contours are unchanged. There is moderate aortic arch calcification. The pulmonary vasculature is not engorged. There is improved aeration in the lower lungs. There is some platelike atelectatic change in the right lower lung and left mid lung on the current exam. There is trace bilateral pleural effusion. There is no pneumothorax. Osseous structures are similar. Impression: While there is improved aeration in the lower lungs compared to the previous study, there is some continued platelike atelectasis in the right lung base and left midlung on today's study PROCEDURE INTERPRETED AT [facility] DEPARTMENT OF RADIOLOGY Final Report Signed by: Dr. Una Menon
[2017-03-03] MEDS: AMPICILLIN INJ 1,000 MG in SODIUM CHLORIDE 0.9% 100 ML IV SCH ×4 (05:18→21:39)
[2017-03-03] MEDS: ASPIRIN EC 81 MG TABLET PO SCH (08:41)
[2017-03-03] MEDS: CHOLECALCIFEROL 1,000 UNIT TABLET PO SCH (08:41)
[2017-03-03] MEDS: TRIAMTERENE/HCTZ 75-50 MG TABLET PO SCH (08:42)
[2017-03-03] MEDS: ASCORBIC ACID 500 MG TABLET PO SCH (08:42)
[2017-03-03] MEDS: FUROSEMIDE 20 MG TABLET PO SCH (08:42)
[2017-03-03] MEDS: PANTOPRAZOLE 40 MG TABLET PO SCH (08:42)
[2017-03-03] MEDS: CYPROHEPTADINE 4 MG TABLET PO SCH ×3 (08:42→21:38)
[2017-03-03] MEDS: CYANOCOBALAMIN 500 MCG TABLET PO SCH (08:42)
[2017-03-03] MEDS: BUDESONIDE/FORMOTEROL 160-4.5 INHALER 6 GM INH SCH ×2 (08:43→21:39)
[2017-03-03] MEDS: AZITHROMYCIN 250 MG TABLET PO SCH (08:43)
--- NOTE | 2017-03-03 14:03 | CT Report ---
History: Hypoxemia Date: 03/03/2017 Study: CT chest with IV contrast with pulmonary embolus technique Comparison exam: CT chest February 24, [address] sections were obtained through the lungs following the IV administration of 80 mL of Omnipaque 350 without immediate complication. There is no discrete filling defect within the pulmonary arterial tree to suggest acute pulmonary embolic disease. There is no focal thoracic aortic aneurysm or dissection. There is no mediastinal mass or mediastinal lymphadenopathy. There is mild left pleural effusion and trace right pleural effusion. A left subclavian pacemaker device is in place. There is moderate coronary artery calcification involving left anterior descending coronary artery. There are some occasional scattered calcified granulomata in the upper lobes bilaterally. There is some atelectatic parenchymal consolidation in either lower lobe, left more than right. There is mild thoracic spondylosis. Impression: No acute cardiopulmonary process Atelectatic parenchymal consolidation in the lower lobes, left greater than right, some of which could represent pneumonia or aspiration. Pleural effusion, left greater than right The CT exam was performed using one or more of the following dose reduction techniques: Automated exposure control, adjustment of the mA and/or kV according to patient size, or use of iterative reconstruction technique. PROCEDURE INTERPRETED AT [facility] DEPARTMENT OF RADIOLOGY Final Report Signed by: Dr. Una Menon
--- NOTE | 2017-03-03 14:33 | Pulmonology Consult Note ---
Assessment and Plan (1) Atelectasis of both lungs Status: Acute Assessment and plan: Patient looks like she probably has some mucus plugging and atelectasis. She does not appear to be in any distress. Will continue with vigorous respiratory therapy and at some point she may need a therapeutic bronchoscopy Current Visit: Yes (2) Sepsis Status: Acute Assessment and plan: Her sepsis has resolved and she has a good blood pressure now. Current Visit: No (3) Chronic obstructive pulmonary disease Status: Chronic Assessment and plan: We will continue with treatment of her COPD. She looks like she has fairly severe COPD Current Visit: No (4) Fracture of left superior pubic ramus Status: Acute Assessment and plan: She has pelvic pain and does not do much activity. Current Visit: No (5) Tobacco abuse Status: Chronic Assessment and plan: She certainly needs to quit smoking. Current Visit: No History of Present Illness Chief complaint: Hypoxemia History of present illness: Ms. Barajas is a 76 year old female has a long history of cigarette smoking and COPD. She has had hypertension with hyperlipidemia and a TIA. She came in with what was thought to be sepsis from UTI and dehydration. She apparently fell and has a pelvic fracture also. She has been doing okay but dropped her O2 saturations easily. She says she is not short of breath or having any pleurisy or chest pain. She does cough and has some sputum production. She is not doing much activity because of her pelvic fracture. She denies leg pain. She says she is relatively comfortable. Home Medications Medication Instructions Recorded Confirmed Type Gabapentin Cap/Tab [Neurontin 900 mg PO BID 10/16/14 02/24/17 History Cap/Tab] Metoprolol Succinate Xl [Toprol Xl] 100 mg PO QAM 10/16/14 02/24/17 History NIFEdipine [Adalat cc] 90 mg PO BEDTIME 10/16/14 02/24/17 History Aspirin EC Tab 81 mg PO QAM 11/24/16 02/24/17 History Budesonide/Formoterol 160-4.5 2 puff INH BID 11/24/16 02/24/17 History [Symbicort 160-4.5] Cyanocobalamin (Vitamin B-12) 2,500 mcg PO DAILY 11/24/16 02/24/17 History [Vitamin B12] Cyproheptadine Tab [Periactin Tab] 4 mg PO TID 11/24/16 02/24/17 History Donepezil HCl 5 mg PO QPM 11/24/16 02/24/17 History Triamterene/Hctz 75-50 Tab 1 tablet PO QAM 11/24/16 02/24/17 History [Maxzide 75-50] raNITIdine HCl [Ranitidine HCl] 300 mg PO BEDTIME 11/24/16 02/24/17 History Ascorbic Acid Tab [Vitamin C Tab] 1,000 mg PO DAILY 02/17/17 02/24/17 History Cholecalciferol (Vitamin D3) 2,000 unit PO DAILY 02/17/17 02/24/17 History [Vitamin D3] HYDROcodone/ACETAMIN 5-325 [[place] 1 tablet PO Q6H PRN #20 tablet 02/17/17 Rx 5-325] Rosuvastatin [Crestor] 10 mg PO QAM 02/17/17 02/24/17 History Allergies Allergy/AdvReac Type Severity Reaction Status Date / Time No Known Allergies Allergy Verified 02/17/17 19:32 - Constitutional Constitutional: Present: weakness. Absent: chills, fever(s), weight loss - EENT Eyes: Absent: loss of vision Ears: Absent: decreased hearing Nose, mouth and throat: Absent: dysphagia, headache(s), sinus pressure - Cardiovascular Cardiovascular: Absent: chest pain at rest, dyspnea, orthopnea, palpitations - Respiratory Respiratory: Present: cough, wheezing, change in phlegm color. Absent: hemoptysis, pain on inspiration - Gastrointestinal Gastrointestinal: Absent: abdominal pain, change in bowel habits, dysphagia, nausea, vomiting - Genitourinary Genitourinary: Absent: dysuria, urinary frequency - Musculoskeletal Musculoskeletal: Present: arthralgias, other (She does have pelvic pain) - Neurological Neurological: Present: confusion. Absent: abnormal speech, focal weakness, paresthesias - Psychiatric Psychiatric: Absent: anxiety Exam (Pulmonay) H&P - Constitutional Vitals: Period Temp Pulse Resp BP Sys/Stoddard Pulse Ox Last 24 Hr 96.6 F-98.3 F 61-74 18-21 99-133/52-66 84-99 General appearance: no acute distress, under weight, other (She does look chronically ill but is comfortable lying in bed.) - Head Head exam: Present: normal inspection, normocephalic - Eye Eye exam: Present: EOMI. Absent: scleral icterus Pupils: Present: FERMIN - ENT ENT exam: Present: normal exam - Neck Neck exam: Absent: lymphadenopathy, thyromegaly - Respiratory Respiratory exam: Present: prolonged expiratory phase, rhonchi. Absent: accessory muscle use - Cardiovascular Cardiovascular exam: Present: regular rate and rhythm. Absent: gallop, systolic murmur - GI/Abdominal GI/Abdominal exam: Present: normal bowel sounds, soft. Absent: organomegaly, tenderness - Extremities Exam Extremities exam: Absent: calf tenderness, edema - Back Exam Back exam: Present: other (She has pelvic pain.) - Neurological Exam Neurological exam: Present: alert, oriented X3, CN II-XII intact. Absent: motor sensory deficit - Psychiatric Psychiatric exam: Present: normal affect - Skin Skin exam: Present: warm, dry Medical,Surgical,& Family Hx - Medical History Cardio: History of: Cardiac Dysrhythmia, Hypertension, Pacemaker (new pacemaker placed June 2015), Cardiovascular Problems (dr turner) Neurology: History of: TIA No history of: Migraine, Seizures HEENT: History of: Dental Problems (Reports dentures intact) Endocrine: History of: Dyslipidemia Respiratory: History of: COPD, Pneumonia (past hx), Respiratory Problems (1/2pk day smoker) Renal: No history of: Renal Problems Genitourinary: History of: Bladder Problem (bladder sling dr castillo) Gastrointestinal: History of: GERD Musculoskeletal: History of: Back/Neck Problems, Musculoskeletal Problems ( reports back pain and wears tens unit history of back injuries) Hematology: No history of: Blood Transfusion Reaction Other: History of: Miscellaneous Medical Problems (possible claudication.) No history of: Cancer (none reported) - Surgical History Cardiac Surgeries: Sugical HX of: Cardiac Catheterization (pt reports stents), Carotid Endarterectomy (Pt reports bilateral) Thoracic Surgeries: Patient denies;: Organ Transplant HEENT Surgeries: Surgical HX of: Carotid Endarterectomy (Pt reports bilateral) Abdominal Surgeries: Surgical HX of: Appendectomy, Cholecystectomy, Colonoscopy Reproductive Surgeries: Surgical HX of;: Hysterectomy Orthopedic Surgeries: Surgical HX of;: Implanted Devices (Tens unit for back) - Family History Family History: Reports;: Family Heart Disease (father) - Social History Smoking Status: Current every day smoker Frequency of Alcohol Use: None Type of Drug Use: None Results - Labs CBC & BMP: 02/27/17 05:06 02/27/17 05:06 Labs: Her previous ABG showed a PO2 of 49 with a PCO2 of 45 and a pH of 7.35 - Diagnostic Findings Procedure: Chest x-ray: image reviewed by me, report reviewed by me (Chest x- ray shows some patchy atelectasis in the bases.), CT - chest: report reviewed by me, image reviewed by me (Her CT shows some atelectasis in the left lower lobe and some slight infiltrates in the right base. She has COPD changes.)
[2017-03-03 14:43] LABS: ABG Base Excess 4.5 MMOL/L (-2.5-2.5); ABG HCO3 28.3 MMOL/L (20-26); ABG Oxygen Saturation 92.5 % (95-100); ABG PCO2 42.5 MM HG (35-48); ABG PH 7.443 (7.35-7.45); ABG PO2 64.4 MM HG (80-95); ABG TCO2 25.2 MMOL/L (23-27); Allen Test Positive
[2017-03-03] MEDS: ALBUTEROL/IPRATROPIUM 3 ML NEB RESP TX SCH ×2 (14:43→19:48)
[2017-03-03] MEDS: methylPREDNISolone SOD SUC 40 MG/1 ML VIAL IV SCH (15:05)
[2017-03-03] MEDS: ENOXAPARIN 40 MG/0.4 ML SYRINGE SUBCUT SCH (15:05)
--- NOTE | 2017-03-03 16:36 | Hospitalist Progress Note ---
Hospitalist: Subjective Interval history: Patient is awake and comfortable and not in any sort of distress. Exam - Constitutional Vitals: Period Temp Pulse Resp BP Sys/Stoddard Pulse Ox Last 24 Hr 96.6 F-98.3 F 61-74 18-22 99-133/52-66 84-99 Exam: General: No Acute Distress HEENT: Normocephalic, atraumatic, Extra ocular movements intact Neck: Supple, No JVD Chest: Clear to auscultation B/L CV: S1 + S2 audible without murmur, gallop or rub Abd: soft, NT, Non-distended, BS + Ext: No edema Skin: No purpura, bruising or rash Rheumatologic: No Joint deformities Neurologic: Strength 5/5 all extremities, no gross sensory deficits Results - Labs CBC & BMP: 02/27/17 05:06 02/27/17 05:06 - Impressions - Impressions Aspiration pneumonia Status: Acute Current Visit: Yes On ampicillin and Zithromax, chest x-ray shows improved pneumonia Acute hypoxemic respiratory failure Status: Acute Current Visit: Yes This likely combination of atelectasis and mucous plug, she is on [address] scan of the chest did not show any pulmonary embolism. I appreciate Dr. Niles Shannon from pulmonology service following. He does not get better with conservative measures she would need fiberoptic bronchoscopy Chronic obstructive pulmonary disease Status: Chronic Current Visit: No Continue Symbicort Pelvic fracture Status: Acute Assessment and plan: Pain control with Toradol and [place] as needed, continue PT, swing bed placement Current Visit: Yes Chronic osteopenia Status: Chronic Current Visit: No On vitamin D supplement Essential hypertension Status: Chronic Current Visit: Yes Controlled on Procardia and maxzide, continue DVT prophylaxis with Lovenox
[2017-03-03] MEDS: DONEPEZIL 5 MG TABLET PO SCH (18:02)
[2017-03-04] MEDS: ALBUTEROL/IPRATROPIUM 3 ML NEB RESP TX SCH ×7 (00:17→23:23)
[2017-03-04] MEDS: methylPREDNISolone SOD SUC 40 MG/1 ML VIAL IV SCH ×3 (00:47→14:26)
[2017-03-04] MEDS: AMPICILLIN INJ 1,000 MG in SODIUM CHLORIDE 0.9% 100 ML IV SCH ×5 (05:37→21:18)
--- NOTE | 2017-03-04 08:36 | Pulmonology Progress Note ---
Pulmonary - PN: Subj Interval history: Patient is a 76-year-old white lady that has COPD and a long history of cigarette smoking. She came in with dehydration and UTI that is better. She apparently fell and had a pelvic fracture. She is not able to do much activity. She has had some mild hypoxemia and does have atelectasis on her CT. She has been having some cough and congestion and mucus plugging. She says she is not that short of breath at present. She says she is feeling okay today. Exam (Progress Note) - Constitutional Vitals: Period Temp Pulse Resp BP Sys/Stoddard Pulse Ox Last 24 Hr 96.6 F-97.9 F 62-74 18-22 96-124/48-64 84-99 Exam: General appearance: no acute distress, under weight, other (She does look chronically ill but is comfortable lying in bed. She does not appear to be in any respiratory distress now.) - Head Head exam: Present: normal inspection, normocephalic - Eye Eye exam: Present: EOMI. Absent: scleral icterus Pupils: Present: FERMIN - ENT ENT exam: Present: normal exam - Neck Neck exam: Absent: lymphadenopathy, thyromegaly - Respiratory Respiratory exam: Present: She has distant breath sounds with prolonged expiration and mild rhonchi bilaterally. - Cardiovascular Cardiovascular exam: Present: regular rate and rhythm. Absent: gallop, systolic murmur - GI/Abdominal GI/Abdominal exam: Present: normal bowel sounds, soft. Absent: organomegaly, tenderness - Extremities Exam Extremities exam: Absent: calf tenderness, edema, no signs of phlebitis. - Back Exam Back exam: Present: other (She has pelvic pain.) - Neurological Exam Neurological exam: Present: alert, oriented X3, CN II-XII intact. Absent: motor sensory deficit - Psychiatric Psychiatric exam: Present: normal affect - Skin Skin exam: Present: warm, dry Results - Labs CBC & BMP: 02/27/17 05:06 02/27/17 05:06 Labs: PO2 64 with a PCO2 of 42 and a pH of 7.44 Assessment and Plan (1) Atelectasis of both lungs Status: Acute Assessment and plan: Patient looks like she probably has some mucus plugging and atelectasis. She seems to be tolerating treatment fairly well. She may need a therapeutic bronchoscopy at some point but she seems relatively stable at present. Current Visit: Yes (2) Sepsis Status: Acute Assessment and plan: Her sepsis has resolved and she has a good blood pressure now. She appears to be hemodynamically stable. Current Visit: No (3) Chronic obstructive pulmonary disease Status: Chronic Assessment and plan: We will continue with treatment of her COPD. She looks like she has fairly severe COPD. Will continue treatment for now. Current Visit: No (4) Fracture of left superior pubic ramus Status: Acute Assessment and plan: She has pelvic pain and does not do much activity. She will continue with physical therapy. Current Visit: No (5) Tobacco abuse Status: Chronic Assessment and plan: She certainly needs to quit smoking. Current Visit: No
[2017-03-04] MEDS: CYANOCOBALAMIN 500 MCG TABLET PO SCH (09:08)
[2017-03-04] MEDS: CHOLECALCIFEROL 1,000 UNIT TABLET PO SCH (09:08)
[2017-03-04] MEDS: AZITHROMYCIN 250 MG TABLET PO SCH (09:08)
[2017-03-04] MEDS: PANTOPRAZOLE 40 MG TABLET PO SCH (09:08)
[2017-03-04] MEDS: BUDESONIDE/FORMOTEROL 160-4.5 INHALER 6 GM INH SCH ×2 (09:08→21:18)
[2017-03-04] MEDS: ASPIRIN EC 81 MG TABLET PO SCH (09:08)
[2017-03-04] MEDS: ASCORBIC ACID 500 MG TABLET PO SCH (09:08)
[2017-03-04] MEDS: TRIAMTERENE/HCTZ 75-50 MG TABLET PO SCH (09:08)
[2017-03-04] MEDS: CYPROHEPTADINE 4 MG TABLET PO SCH ×3 (09:08→21:18)
[2017-03-04] MEDS: FUROSEMIDE 20 MG TABLET PO SCH (09:08)
[2017-03-04] MEDS: KETOROLAC 15 MG/1 ML VIAL IV PRN (14:25)
[2017-03-04] MEDS: ENOXAPARIN 40 MG/0.4 ML SYRINGE SUBCUT SCH (14:38)
--- NOTE | 2017-03-04 15:41 | Hospitalist Progress Note ---
Hospitalist: Subjective Interval history: 68-year-old female in the hospital for pneumonia atelectasis and respiratory failure. She reports that breathing is better Exam - Constitutional Vitals: Period Temp Pulse Resp BP Sys/Stoddard Pulse Ox Last 24 Hr 96.9 F-97.9 F 62-81 18-22 96-124/48-60 92-99 Exam: General: No Acute Distress HEENT: Normocephalic, atraumatic, Extra ocular movements intact Neck: Supple, No JVD Chest: Clear to auscultation B/L CV: S1 + S2 audible without murmur, gallop or rub Abd: soft, NT, Non-distended, BS + Ext: No edema Skin: No purpura, bruising or rash Rheumatologic: No Joint deformities Neurologic: Strength 5/5 all extremities, no gross sensory deficits Results - Labs CBC & BMP: 02/27/17 05:06 02/27/17 05:06 - Impressions - Impressions Aspiration pneumonia Status: Acute Current Visit: Yes On ampicillin and Zithromax, chest x-ray shows improved pneumonia Acute hypoxemic respiratory failure Status: Acute Current Visit: Yes This likely combination of atelectasis and mucous plug, she is on [address] scan of the chest did not show any pulmonary embolism. I appreciate Dr. Niles Shannon from pulmonology service following. He does not get better with conservative measures she would need fiberoptic bronchoscopy. Try to wean oxygen down. Chronic obstructive pulmonary disease Status: Chronic Current Visit: No Continue Symbicort Pelvic fracture Status: Acute Assessment and plan: Pain control with Toradol and [place] as needed, continue PT, swing bed placement Current Visit: Yes Chronic osteopenia Status: Chronic Current Visit: No On vitamin D supplement Essential hypertension Status: Chronic Current Visit: Yes Controlled on Procardia and maxzide, continue DVT prophylaxis with Lovenox Discharge plan to swing bed next week Specialty Discharge - Follow Up or Referrals
[2017-03-04] MEDS: DONEPEZIL 5 MG TABLET PO SCH (19:24)
[2017-03-05] MEDS: methylPREDNISolone SOD SUC 40 MG/1 ML VIAL IV SCH ×4 (00:33→22:03)
[2017-03-05] MEDS: ALBUTEROL/IPRATROPIUM 3 ML NEB RESP TX SCH ×6 (03:25→23:36)
[2017-03-05] MEDS: AMPICILLIN INJ 1,000 MG in SODIUM CHLORIDE 0.9% 100 ML IV SCH ×4 (06:13→22:06)
[2017-03-05] MEDS: CYANOCOBALAMIN 500 MCG TABLET PO SCH (08:36)
[2017-03-05] MEDS: BUDESONIDE/FORMOTEROL 160-4.5 INHALER 6 GM INH SCH ×2 (08:36→20:33)
[2017-03-05] MEDS: ASCORBIC ACID 500 MG TABLET PO SCH (08:36)
[2017-03-05] MEDS: TRIAMTERENE/HCTZ 75-50 MG TABLET PO SCH ×2 (08:37→10:10)
[2017-03-05] MEDS: CYPROHEPTADINE 4 MG TABLET PO SCH ×3 (08:38→20:33)
[2017-03-05] MEDS: ASPIRIN EC 81 MG TABLET PO SCH (08:38)
[2017-03-05] MEDS: CHOLECALCIFEROL 1,000 UNIT TABLET PO SCH (08:38)
[2017-03-05] MEDS: FUROSEMIDE 20 MG TABLET PO SCH (08:38)
[2017-03-05] MEDS: AZITHROMYCIN 250 MG TABLET PO SCH (08:38)
[2017-03-05] MEDS: PANTOPRAZOLE 40 MG TABLET PO SCH (10:11)
--- NOTE | 2017-03-05 12:46 | Pulmonology Progress Note ---
Pulmonary - PN: Subj Interval history: This 76-year-old lady has COPD. Has a history of a pelvic fracture. She is not very active. She seems to be a little better with her shortness of breath today. Still has a good bit of congestion. Exam (Progress Note) - Constitutional Vitals: Period Temp Pulse Resp BP Sys/Stoddard Pulse Ox Last 24 Hr 96.7 F-98.1 F 67-92 16-20 92-102/50-54 90-99 Exam: He is alert oriented vital signs normal. Pupils react to light. Throat is clear. Neck is supple no bruits. Chest reveals some coarse rhonchi in both upper lobes. Heart normal rate rhythm no murmurs. Abdomen soft nontender no masses. Extremities no clubbing cyanosis or edema. Calves nontender. Results - Labs CBC & BMP: 02/27/17 05:06 02/27/17 05:06 Lab Results: I have reviewed the past 24 hour labs Assessment and Plan (1) Chronic obstructive pulmonary disease Status: Chronic Assessment and plan: She is improved but having a difficult time coughing sputum up. Continuing with bronchodilator steroids and antibiotics. O2 sat is 99% but she still requiring a good bit of oxygen. Current Visit: No Specialty Discharge - Follow Up or Referrals
--- NOTE | 2017-03-05 14:11 | Hospitalist Progress Note ---
Assessment and Plan (1) Acute respiratory failure with hypoxia Status: Acute Assessment and plan: Patient will be observed on fluoroscopy continue oxygen supplementation. Will bronchoscopy on Tuesday. Neurology is on the case Current Visit: Yes (2) Chronic obstructive pulmonary disease Status: Chronic Assessment and plan: Continue current treatments. Current Visit: No Hospitalist: Subjective Interval history: Patient has been seen interviewed and examined chart has been reviewed. Patient has no acute complaints at this point. Admitted to the hospital with acute respiratory failure with hypoxia. She has had hypoxia on and off even after improvement. There is strong suspicion that the patient may be plugging. She is been planned to be observed over the weekend for possible therapeutic bronchoscopy on Tuesday. Her decompensations happen very fast without any warning. Exam - Constitutional Vitals: Period Temp Pulse Resp BP Sys/Stoddard Pulse Ox Last 24 Hr 96.7 F-98.1 F 67-92 16-20 92-102/50-54 90-99 General appearance: normal weight - Head Head exam: Present: normal inspection - Eye Eye exam: Present: EOMI Pupils: Present: FERMIN - ENT ENT exam: Present: normal exam - Neck Neck exam: Present: normal inspection - Respiratory Respiratory exam: Present: other (Noted basilar crackles mostly on the right and left no active wheezing at this point) - Cardiovascular Cardiovascular exam: Present: regular rate and rhythm - GI/Abdominal GI/Abdominal exam: Present: normal bowel sounds, soft - Extremities Exam Extremities exam: Present: full ROM - Back Exam Back exam: Present: normal inspection - Neurological Exam Neurological exam: Present: alert, oriented X3, CN II-XII intact - Psychiatric Psychiatric exam: Present: normal affect, normal mood - Skin Skin exam: Present: normal color, warm, dry Results - Labs CBC & BMP: 02/27/17 05:06 02/27/17 05:06 Lab Results: I have reviewed the past 24 hour labs Specialty Discharge - Follow Up or Referrals
[2017-03-05] MEDS: ENOXAPARIN 40 MG/0.4 ML SYRINGE SUBCUT SCH (15:01)
[2017-03-05] MEDS: DOCUSATE SODIUM 100 MG CAPSULE PO PRN ×2 (15:03→20:33)
[2017-03-05] MEDS: DONEPEZIL 5 MG TABLET PO SCH (18:16)
[2017-03-06] MEDS: ALBUTEROL/IPRATROPIUM 3 ML NEB RESP TX SCH ×6 (03:56→23:35)
[2017-03-06] MEDS: AMPICILLIN INJ 1,000 MG in SODIUM CHLORIDE 0.9% 100 ML IV SCH ×4 (05:10→22:01)
[2017-03-06] MEDS: methylPREDNISolone SOD SUC 40 MG/1 ML VIAL IV SCH ×3 (06:12→22:00)
[2017-03-06] MEDS: FUROSEMIDE 20 MG TABLET PO SCH (08:52)
[2017-03-06] MEDS: AZITHROMYCIN 250 MG TABLET PO SCH (08:52)
[2017-03-06] MEDS: ASPIRIN EC 81 MG TABLET PO SCH (08:52)
[2017-03-06] MEDS: CYANOCOBALAMIN 500 MCG TABLET PO SCH (08:52)
[2017-03-06] MEDS: CHOLECALCIFEROL 1,000 UNIT TABLET PO SCH (08:53)
[2017-03-06] MEDS: TRIAMTERENE/HCTZ 75-50 MG TABLET PO SCH (08:53)
[2017-03-06] MEDS: ASCORBIC ACID 500 MG TABLET PO SCH (08:53)
[2017-03-06] MEDS: PANTOPRAZOLE 40 MG TABLET PO SCH (08:53)
[2017-03-06] MEDS: CYPROHEPTADINE 4 MG TABLET PO SCH ×3 (08:54→21:54)
[2017-03-06] MEDS: BUDESONIDE/FORMOTEROL 160-4.5 INHALER 6 GM INH SCH ×2 (08:54→21:54)
--- NOTE | 2017-03-06 11:34 | Pulmonology Progress Note ---
Pulmonary - PN: Subj Interval history: This 76-year-old lady has COPD. Has a history of a pelvic fracture. She is not very active. She seems to be a little better with her shortness of breath today. Still has a good bit of congestion. 03/06/2017 patient is feeling a little better. Starting to get the sputum up a little better. Exam (Progress Note) - Constitutional Vitals: Period Temp Pulse Resp BP Sys/Stoddard Pulse Ox Last 24 Hr 97.2 F-98.2 F 72-92 16-18 89-155/45-73 92-99 Exam: He is alert oriented vital signs normal. Pupils react to light. Throat is clear. Neck is supple no bruits. Chest reveals some coarse rhonchi in both upper lobes. Heart normal rate rhythm no murmurs. Abdomen soft nontender no masses. Extremities no clubbing cyanosis or edema. Calves nontender. Little change from yesterday, except lungs sound a little better. Results - Labs CBC & BMP: 02/27/17 05:06 02/27/17 05:06 Lab Results: I have reviewed the past 24 hour labs Assessment and Plan (1) Chronic obstructive pulmonary disease Status: Chronic Assessment and plan: She is improved but having a difficult time coughing sputum up. Continuing with bronchodilator steroids and antibiotics. O2 sat is 99% but she still requiring a good bit of oxygen. 03/06/2017 continuing IV antibiotics and steroids and nebulized bronchodilators. Current Visit: No Specialty Discharge - Follow Up or Referrals
--- NOTE | 2017-03-06 12:11 | Hospitalist Progress Note ---
Assessment and Plan (1) Acute respiratory failure with hypoxia Status: Acute Assessment and plan: Patient will be observed on fluoroscopy continue oxygen supplementation. Will bronchoscopy on Tuesday. Neurology is on the case Current Visit: Yes (2) Chronic obstructive pulmonary disease Status: Chronic Assessment and plan: Continue current treatments. Current Visit: No Hospitalist: Subjective Interval history: Patient has been seen interviewed and examined and chart has been reviewed no acute complaints today. She been planned for therapeutic bronchoscopy possibly tomorrow. Exam - Constitutional Vitals: Period Temp Pulse Resp BP Sys/Stoddard Pulse Ox Last 24 Hr 97.2 F-98.2 F 72-92 16-18 89-155/45-73 92-99 General appearance: normal weight - Head Head exam: Present: atraumatic - Eye Eye exam: Present: EOMI Pupils: Present: FERMIN - Respiratory Respiratory exam: Present: clear to auscultation bilaterally, other (Scattered crackles at the bases) - Cardiovascular Cardiovascular exam: Present: regular rate and rhythm - Extremities Exam Extremities exam: Present: full ROM - Neurological Exam Neurological exam: Present: alert, oriented X3, CN II-XII intact - Psychiatric Psychiatric exam: Present: normal affect, normal mood - Skin Skin exam: Present: normal color, warm, dry Results - Labs CBC & BMP: 02/27/17 05:06 02/27/17 05:06 Lab Results: I have reviewed the past 24 hour labs Specialty Discharge - Follow Up or Referrals
[2017-03-06] MEDS: ENOXAPARIN 40 MG/0.4 ML SYRINGE SUBCUT SCH (14:52)
[2017-03-06] MEDS: DONEPEZIL 5 MG TABLET PO SCH (18:16)
[2017-03-06] MEDS: KETOROLAC 15 MG/1 ML VIAL IV PRN (18:48)
[2017-03-06] MEDS: POLYETHYLENE GLYCOL POWDER 17 GM PACK PO SCH (18:49)
[2017-03-07] MEDS: ALBUTEROL/IPRATROPIUM 3 ML NEB RESP TX SCH ×3 (03:41→11:17)
[2017-03-07] MEDS: AMPICILLIN INJ 1,000 MG in SODIUM CHLORIDE 0.9% 100 ML IV SCH ×2 (04:00→10:11)
[2017-03-07] MEDS: methylPREDNISolone SOD SUC 40 MG/1 ML VIAL IV SCH (06:02)
[2017-03-07] MEDS: PANTOPRAZOLE 40 MG TABLET PO SCH (10:04)
[2017-03-07] MEDS: ASCORBIC ACID 500 MG TABLET PO SCH (10:04)
[2017-03-07] MEDS: FUROSEMIDE 20 MG TABLET PO SCH (10:04)
[2017-03-07] MEDS: AZITHROMYCIN 250 MG TABLET PO SCH (10:04)
[2017-03-07] MEDS: CYANOCOBALAMIN 500 MCG TABLET PO SCH (10:05)
[2017-03-07] MEDS: ASPIRIN EC 81 MG TABLET PO SCH (10:05)
[2017-03-07] MEDS: CHOLECALCIFEROL 1,000 UNIT TABLET PO SCH (10:05)
[2017-03-07] MEDS: TRIAMTERENE/HCTZ 75-50 MG TABLET PO SCH (10:05)
[2017-03-07] MEDS: CYPROHEPTADINE 4 MG TABLET PO SCH (10:05)
[2017-03-07] MEDS: POLYETHYLENE GLYCOL POWDER 17 GM PACK PO SCH (10:06)
[2017-03-07] MEDS: BUDESONIDE/FORMOTEROL 160-4.5 INHALER 6 GM INH SCH (10:06)
[2017-03-07 11:21] VITALS: BP 119/66
--- NOTE | 2017-03-07 12:00 | Discharge Summary ---
Hospital Course - Hospital Course Hospital Course: This is a chronically ill 76-year-old female that presented to the ED at [facility] on the morning of February 24, 2017 for the evaluation of low blood pressure, shaking, and swelling. The patient has a medical history significant for hypertension, transient ischemic attack, dyslipidemia, chronic obstructive pulmonary disease, current nicotine use, gastroesophageal reflux disease, and chronic lower back pain. Patient surgical history significant for heart catheterization with stent placement, carotid endarterectomy, appendectomy, cholecystectomy, colonoscopy, hysterectomy, implanted spinal stimulation device, and bladder sling placement. The time of ED presentation, the patient was grossly altered. The family was present at bedside and served historian. They reported that the patient was observed this morning "shaking, febrile, nausea, and left leg pain". They reportedthat the patient was recently discharged from [facility] on yesterday in which she was admitted and treated for sepsis secondary to urinary tract infection. They became alarmed prompting them to transfer the patient to the ED for further evaluation. Patient was evaluated at the time of ED presentation. The patient was noted to be tachypneic with a respiratory rate noted at 24 and hypoxic with an O2 saturation noted at 79%. In addition, the patient's blood pressure was noted at 116/50. Labs were obtained which were significant for white blood cell count at 20.6, BUN 35, creatinine 1.60, glucose 118, albumin 2.7, and globulin 4.3. Urinalysis was significant for urine urobilinogen greater than 2.0, urine RBC less than 1, urine WBC less than 1, and the presence of occasional squamous epithelial, urine bacteria, and urine mucus was noted. Chest x-ray was significant for cardiomegaly with interstitial edema and effusions or pneumonic infiltrates present in the basilar regions bilaterally left greater than right and the presence of superimposed component of mild CHF cannot be excluded. In addition, stepsister cardiac pacing device with ASCVD and underlying granuloma changes were noted. The patient was subsequently admitted to the hospitalist service for continuation of care. At the time of ED presentation, the patient was noted to be tachypneic with a respiratory rate of 24 and hypoxic with an O2 saturation noted at 79. In addition, labs were obtained which were significant for white blood cell count of 20.6, BUN 35, and creatinine 1.6. Chest x-ray was significant for left upper and lower lobe infiltrates. The patient has experienced episodes of hypotension during the ED encounter. Blood pressure was noted as low as 74/32. Multiple fluid boluses were given. Based on these clinical findings, the patient has met the sepsis guidelines. Due to the severity of the patient's presenting symptoms, the patient was placed in the critical care setting. The severe sepsis bundle was initiated. Gentle rehydration, empiric antibiotic coverage, supportive care was initiated. The patient's condition slowly improved. The patient was subsequently transferred to the general medical surgical floor on February 27, 2017. Physical and Occupational Therapy consultations were requested. A pulmonary consultation was requested to assist in the management of the patient's chronic obstructive pulmonary disease and aspiration pneumonia. The patient was seen by pulmonology and recommendations were given. The patient's condition gradually improved. The patient's condition is stable. She has not experienced any significant overnight events. Today, we feel that she is indeed appropriate for discharge to [facility] for continuation of care. Diagnosis - Discharge Diagnosis (1) Sepsis Status: Acute (2) Acute renal failure Status: Acute (3) Hypotension Status: Acute Specialty Discharge - Follow Up or Referrals Discharge Plan - Discharge Medications No Action NIFEdipine [Adalat cc] 90 mg PO BEDTIME Metoprolol Succinate Xl [Toprol Xl] 100 mg PO QAM Gabapentin Cap/Tab [Neurontin Cap/Tab] 900 mg PO BID Cyanocobalamin (Vitamin B-12) [Vitamin B12] 2,500 mcg PO DAILY Budesonide/Formoterol 160-4.5 [Symbicort 160-4.5] 2 puff INH BID Cyproheptadine Tab [Periactin Tab] 4 mg PO TID Triamterene/Hctz 75-50 Tab [Maxzide 75-50] 1 tablet PO QAM Aspirin EC Tab 81 mg PO QAM Donepezil HCl 5 mg PO QPM Rosuvastatin [Crestor] 10 mg PO QAM Cholecalciferol (Vitamin D3) [Vitamin D3] 2,000 unit PO DAILY raNITIdine HCl [Ranitidine HCl] 300 mg PO BEDTIME HYDROcodone/ACETAMIN 5-325 [[place] 5-325] 1 tablet PO Q6H PRN #20 tablet PRN Reason: Left hip pain Ascorbic Acid Tab [Vitamin C Tab] 1,000 mg PO DAILY - Follow Up or Referral - Forms/Instructions Instructions: Pelvic Fracture (DC), Aspiration Pneumonia (DC), Sepsis (DC) Exam - Constitutional Vitals: Period Temp Pulse Resp BP Sys/Stoddard Pulse Ox Last 24 Hr 96.9 F-98.3 F 62-84 14-19 105-138/52-70 92-98 DS: Provider Date of admission: 02/24/17 11:24 Primary care physician: Janina Lan Attending physician on admission: Mario Alberto Arrieta MD Consults: 02/24/17 12:31 Consult to Case Mgmt/Social Srvs [CONS] Routine Reason for Case Mgmt/Social Srvs: Rehab Other Swingbed/SNF/Chcf 02/24/17 14:41 Consult to Pastoral Services [CONS] Routine Comment: Pastoral Screen: Request Subassembly Supervisor Visit Pastoral Screen Source of Request: Patient 02/25/17 08:08 Consult to Physical Therapy [CONS] Routine Reason for Physical Therapy: Evaluate and Treat 02/27/17 11:18 Consult to Case Mgmt/Social Srvs [CONS] Routine Reason for Case Mgmt/Social Srvs: Swingbed/SNF/Chcf Consult Comment: can go when bed avail 03/03/17 12:35 Consult to Physician [CONS] Routine Comment: Respiratory failure Consulting Provider: Steven Shannon Person Notified: md aware Date Notified: 03/04/17 Time Notified: 11:26 Discharging clinician: Jc Lopez CNP
--- NOTE | 2017-03-07 12:09 | Discharge Summary ---
Hospital Course - Hospital Course Hospital Course: This is a chronically ill 76-year-old female that presented to the ED at [facility] on the morning of February 24, 2017 for the evaluation of low blood pressure, shaking, and swelling. The patient has a medical history significant for hypertension, transient ischemic attack, dyslipidemia, chronic obstructive pulmonary disease, current nicotine use, gastroesophageal reflux disease, and chronic lower back pain. Patient surgical history significant for heart catheterization with stent placement, carotid endarterectomy, appendectomy, cholecystectomy, colonoscopy, hysterectomy, implanted spinal stimulation device, and bladder sling placement. The time of ED presentation, the patient was grossly altered. The family was present at bedside and served historian. They reported that the patient was observed this morning "shaking, febrile, nausea, and left leg pain". They reportedthat the patient was recently discharged from [facility] on yesterday in which she was admitted and treated for sepsis secondary to urinary tract infection. They became alarmed prompting them to transfer the patient to the ED for further evaluation. Patient was evaluated at the time of ED presentation. The patient was noted to be tachypneic with a respiratory rate noted at 24 and hypoxic with an O2 saturation noted at 79%. In addition, the patient's blood pressure was noted at 116/50. Labs were obtained which were significant for white blood cell count at 20.6, BUN 35, creatinine 1.60, glucose 118, albumin 2.7, and globulin 4.3. Urinalysis was significant for urine urobilinogen greater than 2.0, urine RBC less than 1, urine WBC less than 1, and the presence of occasional squamous epithelial, urine bacteria, and urine mucus was noted. Chest x-ray was significant for cardiomegaly with interstitial edema and effusions or pneumonic infiltrates present in the basilar regions bilaterally left greater than right and the presence of superimposed component of mild CHF cannot be excluded. In addition, stepsister cardiac pacing device with ASCVD and underlying granuloma changes were noted. The patient was subsequently admitted to the hospitalist service for continuation of care. At the time of ED presentation, the patient was noted to be tachypneic with a respiratory rate of 24 and hypoxic with an O2 saturation noted at 79. In addition, labs were obtained which were significant for white blood cell count of 20.6, BUN 35, and creatinine 1.6. Chest x-ray was significant for left upper and lower lobe infiltrates. The patient has experienced episodes of hypotension during the ED encounter. Blood pressure was noted as low as 74/32. Multiple fluid boluses were given. Based on these clinical findings, the patient has met the sepsis guidelines. Due to the severity of the patient's presenting symptoms, the patient was placed in the critical care setting. The severe sepsis bundle was initiated. Gentle rehydration, empiric antibiotic coverage, supportive care was initiated. The patient's condition slowly improved. The patient was subsequently transferred to the general medical surgical floor on February 27, 2017. Physical and Occupational Therapy consultations were requested. A pulmonary consultation was requested to assist in the management of the patient's chronic obstructive pulmonary disease and aspiration pneumonia. The patient was seen by pulmonology and recommendations were given. The patient's condition gradually improved. The patient's condition is stable. She has not experienced any significant overnight events. Today, we feel that she is indeed appropriate for discharge to [facility] for continuation of care. Diagnosis - Discharge Diagnosis (1) Acute respiratory failure with hypoxia Status: Acute (2) Chronic obstructive pulmonary disease Status: Chronic Specialty Discharge - Follow Up or Referrals Discharge Plan - Discharge Data Disposition: Swing Bed, Hos Based, [facility] Condition at Discharge: Stable Discharge Diet: heart healthy Activity: increase activity as tolerated Hygiene: may tub bathe Weight Bearing at Discharge: weight bear as tolerated Driving: not until seen by doctor Contact your physician if you experience:: fever over 101, Difficulty voiding, Nausea/Vomiting, Shortness of breath, pain uncontrolled by pain medications - Discharge Medications New Docusate Sodium Cap [Colace Cap] 100 mg PO BID PRN #60 capsule PRN Reason: Constipation Pantoprazole Tab [Protonix Tab] 40 mg PO DAILY #30 tablet Continue NIFEdipine [Adalat cc] 90 mg PO BEDTIME Metoprolol Succinate Xl [Toprol Xl] 100 mg PO QAM Gabapentin Cap/Tab [Neurontin Cap/Tab] 900 mg PO BID Cyanocobalamin (Vitamin B-12) [Vitamin B12] 2,500 mcg PO DAILY Budesonide/Formoterol 160-4.5 [Symbicort 160-4.5] 2 puff INH BID Cyproheptadine Tab [Periactin Tab] 4 mg PO TID Triamterene/Hctz 75-50 Tab [Maxzide 75-50] 1 tablet PO QAM Aspirin EC Tab 81 mg PO QAM Donepezil HCl 5 mg PO QPM Rosuvastatin [Crestor] 10 mg PO QAM Cholecalciferol (Vitamin D3) [Vitamin D3] 2,000 unit PO DAILY raNITIdine HCl [Ranitidine HCl] 300 mg PO BEDTIME HYDROcodone/ACETAMIN 5-325 [[place] 5-325] 1 tablet PO Q6H PRN #20 tablet PRN Reason: Left hip pain Ascorbic Acid Tab [Vitamin C Tab] 1,000 mg PO DAILY - Follow Up or Referral - Forms/Instructions Instructions: Pelvic Fracture (DC), Aspiration Pneumonia (DC), Sepsis (DC) Exam - Constitutional Vitals: Period Temp Pulse Resp BP Sys/Stoddard Pulse Ox Last 24 Hr 96.9 F-98.3 F 62-84 14-19 105-138/52-70 92-98 General appearance: normal weight, no acute distress - Head Head exam: Present: normal inspection - Eye Eye exam: Present: EOMI Pupils: Present: FERMIN - ENT ENT exam: Present: normal exam - Neck Neck exam: Present: normal inspection - Respiratory Respiratory exam: Present: clear to auscultation bilaterally - Cardiovascular Cardiovascular exam: Present: regular rate and rhythm - GI/Abdominal GI/Abdominal exam: Present: normal bowel sounds, soft - Extremities Exam Extremities exam: Present: full ROM, other (Generalized deconditioning acute in) - Neurological Exam Neurological exam: Present: alert, oriented X3, CN II-XII intact - Psychiatric Psychiatric exam: Present: normal affect, normal mood - Skin Skin exam: Present: normal color, warm, dry DS: Provider Date of admission: 02/24/17 11:24 Primary care physician: Janina Lan Attending physician on admission: Mario Alberto Arrieta MD Consults: 02/24/17 12:31 Consult to Case Mgmt/Social Srvs [CONS] Routine Reason for Case Mgmt/Social Srvs: Rehab Other Swingbed/SNF/Fpc 02/24/17 14:41 Consult to Pastoral Services [CONS] Routine Comment: Pastoral Screen: Request Jig Builder Visit Pastoral Screen Source of Request: Patient 02/25/17 08:08 Consult to Physical Therapy [CONS] Routine Reason for Physical Therapy: Evaluate and Treat 02/27/17 11:18 Consult to Case Mgmt/Social Srvs [CONS] Routine Reason for Case Mgmt/Social Srvs: Swingbed/SNF/Fpc Consult Comment: can go when bed avail 03/03/17 12:35 Consult to Physician [CONS] Routine Comment: Respiratory failure Consulting Provider: Steven Shannon Person Notified: aware Date Notified: 03/04/17 Time Notified: 11:26 Discharging clinician: Michael Aguilar MD
--- NOTE | 2017-03-07 14:44 | Pulmonology Progress Note ---
Pulmonary - PN: Subj Interval history: Patient is a 76-year-old white lady that has COPD and a long history of cigarette smoking. She came in with dehydration and UTI that is better. She apparently fell and had a pelvic fracture. She is not able to do much activity. She has had some mild hypoxemia and does have atelectasis on her CT. She has been having some cough and congestion and mucus plugging. She says she is done better over the weekend. Her cough is clearing and she is having less chest congestion. Her O2 saturation has improved and she is not short of breath now. She is probably going to a swing bed today. Exam (Progress Note) - Constitutional Vitals: Period Temp Pulse Resp BP Sys/Stoddard Pulse Ox Last 24 Hr 96.9 F-98.0 F 62-84 14-19 105-134/52-70 92-98 Exam: General appearance: no acute distress, under weight, other (She does look chronically ill but is comfortable lying in bed. She does not appear to be in any respiratory distress now.) - Head Head exam: Present: normal inspection, normocephalic - Eye Eye exam: Present: EOMI. Absent: scleral icterus Pupils: Present: FERMIN - ENT ENT exam: Present: normal exam - Neck Neck exam: Absent: lymphadenopathy, thyromegaly - Respiratory Respiratory exam: Present: She has distant breath sounds with prolonged expiration but she is moving air a little better without any wheezing. - Cardiovascular Cardiovascular exam: Present: regular rate and rhythm. Absent: gallop, systolic murmur - GI/Abdominal GI/Abdominal exam: Present: normal bowel sounds, soft. Absent: organomegaly, tenderness - Extremities Exam Extremities exam: Absent: calf tenderness, edema, no signs of phlebitis. - Back Exam Back exam: Present: other (She has pelvic pain.) - Neurological Exam Neurological exam: Present: alert, oriented X3, CN II-XII intact. Absent: motor sensory deficit - Psychiatric Psychiatric exam: Present: normal affect - Skin Skin exam: Present: warm, dry Results - Labs CBC & BMP: 02/27/17 05:06 02/27/17 05:06 Assessment and Plan (1) Atelectasis of both lungs Status: Acute Assessment and plan: Patient looks like she probably has some mucus plugging and atelectasis. She seems to be tolerating treatment fairly well. She feels like her breathing is better and overall she is improved. Current Visit: Yes (2) Sepsis Status: Acute Assessment and plan: Her sepsis has resolved and she has a good blood pressure now. She appears to be hemodynamically stable. Current Visit: No (3) Chronic obstructive pulmonary disease Status: Chronic Assessment and plan: We will continue with treatment of her COPD. Her breathing is better and she will go to a swing bed. She can continue with respiratory therapy. Current Visit: No (4) Fracture of left superior pubic ramus Status: Acute Assessment and plan: She has pelvic pain and does not do much activity. She will continue with physical therapy. She is going to a swing bed today. Current Visit: No (5) Tobacco abuse Status: Chronic Assessment and plan: She certainly needs to quit smoking. Current Visit: No Specialty Discharge - Follow Up or Referrals
== END 2017-03-07 14:42 | DRG 871 ==
LOC: N.ED 09:41 → N.EDINP 11:24 → SUATTDRO 11:24 → N.ED 13:24 → N.ICU 13:58 → N.5E 02-25 18:20
PROVIDERS: ADMIT Internal Medicine; ATTEND Internal Medicine Infectious Disease

== ENCOUNTER 2017-08-11 12:10 | Inpatient (IN) ==
[2017-08-11 14:01] LABS: Basophils % 0.1 % (0.0-0.8); Hematocrit 42.3 VOL% (35.7-47.0); Hemoglobin 13.8 GM/DL (12.0-16.0); Immature Granulocytes % 0.3 %; Immature Granulocytes Absolute 0.03 #; Lymphocytes # 0.9 10*3/uL (1.4-4.0); Lymphocytes % 8.8 % (21.3-54.2); Mean Corpuscular HGB Conc 32.6 GM/DL (32-36); Mean Corpuscular Hemoglobin 31 PG (27-34); Mean Corpuscular Volume 95.3 FL (87-102); Mean Platelet Volume 10.3 FL (9.6-12.0); Monocytes # 0.6 10*3/uL (0.11-0.8); Monocytes % 5.9 % (1.7-12.7); Neutrophils # 8.2 10*3/uL (1.4-7.4); Neutrophils % 84.9 % (38.7-73.9); Platelet Count 193 T/CUMM (130-400); Red Blood Count 4.44 MC/CUMM (3.8-5.5); Red Cell Distribution Width 14.6 % (9.3-17.3); White Blood Count 9.6 T/CUMM (4-12)
[2017-08-11 14:25] LABS: Albumin 3.5 G/DL (3.4-5.0); Bilirubin,Total 0.4 MG/DL (0.2-1.0); Calcium 9.2 MG/DL (8.5-10.1); Osmolality,Calculated 284.3 MOS/KG (273-304); Potassium 3.5 MMOL/L (3.5-5.1); Total Protein 8.2 G/DL (6.4-8.3)
[2017-08-11 14:26] LABS: Troponin I Only 0.057 NG/ML (0.00-0.045)
[2017-08-11] MEDS ORDERED: ALBUTEROL/IPRATROPIUM 3 ML NEB RESP TX STA (14:46)
[2017-08-11] MEDS ORDERED: methylPREDNISolone SOD SUC 125 MG/2 ML VIAL IV STA (14:46)
[2017-08-11] MEDS ORDERED: LEVOFLOXACIN INJ 500 MG in PREMIX 1 EACH IV STA (14:46)
[2017-08-11] MEDS ORDERED: methylPREDNISolone SOD SUC 125 MG/2 ML VIAL ONE (14:55)
[2017-08-11] MEDS ORDERED: LEVOFLOXACIN INJ 100 ML IV ONE (14:55)
[2017-08-11] MEDS ORDERED: DOCUSATE SODIUM 100 MG CAPSULE PO PRN (17:09)
[2017-08-11 17:44] LABS: Apearance,Urine CLEAR (Clear); Bacteria,Urine Occasional /HPF (Few); Bilirubin,Urine Negative (Negative); Blood, Urine Negative (Negative); Glucose,Urine (UA) Negative (Negative); Ketones,Urine Negative (Negative); Nitrite,Urine Positive (Negative); Protein,Urine 30 MG/DL; RBC,Urine 1 /HPF (0-4); Squamous Epithelial Cell,Urine Occasional /HPF (0-10); Urine Specific Gravity 1.006 (1.001-1.035); WBC,Urine 1 /HPF (0-6)
[2017-08-11] MEDS ORDERED: DEXTROSE 50% 25 GM/50 ML VIAL IV PRN (17:44)
[2017-08-11] MEDS ORDERED: ONDANSETRON 4 MG/2 ML VIAL IV PRN (17:44)
[2017-08-11] MEDS ORDERED: SODIUM CHLORIDE 0.9% 1,000 ML IV SCH (17:44)
[2017-08-11] MEDS ORDERED: GLUCAGON 1 MG VIAL IM PRN (17:44)
[2017-08-11] MEDS ORDERED: ZALEPLON 5 MG CAPSULE PO PRN (17:44)
[2017-08-11] MEDS ORDERED: ACETAMINOPHEN 325 MG TABLET PO PRN (17:44)
[2017-08-11] MEDS ORDERED: ALBUTEROL 0.4 MG/ML 30 ML/BOTTLE PO PRN (17:44)
[2017-08-11 17:45] LABS: Urine Color Yellow (Yellow)
[2017-08-11] MEDS: FAMOTIDINE 20 MG TABLET PO SCH (20:15)
[2017-08-11] MEDS: PHENAZOPYRIDINE 95 MG TABLET PO SCH (20:15)
[2017-08-11] MEDS: AMPICILLIN INJ 500 MG in SODIUM CHLORIDE 0.9% 100 ML IV SCH (20:16)
[2017-08-11] MEDS: CYPROHEPTADINE 4 MG TABLET PO SCH (20:16)
[2017-08-11] MEDS: DONEPEZIL 5 MG TABLET PO SCH (20:16)
[2017-08-11] MEDS: ENOXAPARIN 30 MG/0.3 ML SYRINGE SUBCUT SCH (20:16)
[2017-08-11] MEDS: GABAPENTIN 600 MG TABLET PO SCH (20:16)
[2017-08-11] MEDS: ALBUTEROL/IPRATROPIUM 3 ML NEB RESP TX SCH (20:24)
[2017-08-11] MEDS: INSULIN LISPRO 100 UNIT/ML SUBCUT SCH (20:30)
[2017-08-11] MEDS: BUDESONIDE/FORMOTEROL 160-4.5 INHALER 6 GM INH SCH (22:45)
[2017-08-12] MEDS: ALBUTEROL/IPRATROPIUM 3 ML NEB RESP TX SCH ×7 (00:20→22:31)
[2017-08-12] MEDS: AMPICILLIN INJ 500 MG in SODIUM CHLORIDE 0.9% 100 ML IV SCH ×2 (01:58→08:06)
[2017-08-12 05:30] LABS: Basophils % 0.2 % (0.0-0.8); Hematocrit 38.5 VOL% (35.7-47.0); Hemoglobin 12.2 GM/DL (12.0-16.0); Immature Granulocytes % 0.5 %; Immature Granulocytes Absolute 0.03 #; Lymphocytes # 0.6 10*3/uL (1.4-4.0); Lymphocytes % 8.9 % (21.3-54.2); Mean Corpuscular HGB Conc 31.7 GM/DL (32-36); Mean Corpuscular Hemoglobin 31 PG (27-34); Mean Platelet Volume 10.3 FL (9.6-12.0); Monocytes # 0.2 10*3/uL (0.11-0.8); Neutrophils # 5.6 10*3/uL (1.4-7.4); Neutrophils % 87.4 % (38.7-73.9); Platelet Count 163 T/CUMM (130-400); Red Blood Count 3.97 MC/CUMM (3.8-5.5); Red Cell Distribution Width 14.5 % (9.3-17.3); White Blood Count 6.4 T/CUMM (4-12)
[2017-08-12 06:19] LABS: Calcium 8.4 MG/DL (8.5-10.1); Osmolality,Calculated 289.1 MOS/KG (273-304); Potassium 3.8 MMOL/L (3.5-5.1); Troponin I Only 0.025 NG/ML (0.00-0.045)
[2017-08-12] MEDS: PHENAZOPYRIDINE 95 MG TABLET PO SCH ×3 (08:08→20:19)
[2017-08-12] MEDS: TRIAMTERENE/HCTZ 75-50 MG TABLET PO SCH (08:08)
[2017-08-12] MEDS: CYPROHEPTADINE 4 MG TABLET PO SCH ×3 (08:08→20:20)
[2017-08-12] MEDS: METOPROLOL SUCCINATE XL 100 MG TABLET PO SCH (08:08)
[2017-08-12] MEDS: ASCORBIC ACID 500 MG TABLET PO SCH (08:08)
[2017-08-12] MEDS: ASPIRIN EC 81 MG TABLET PO SCH (08:08)
[2017-08-12] MEDS: MULTIVITAMIN (BEROCCA) TABLET PO SCH (08:09)
[2017-08-12] MEDS: CHOLECALCIFEROL 1,000 UNIT TABLET PO SCH (08:09)
[2017-08-12] MEDS: NICOTINE 7 MG/24 HR PATCH TRANSDERM SCH ×2 (08:09→08:15)
[2017-08-12] MEDS: GABAPENTIN 600 MG TABLET PO SCH ×3 (08:09→20:19)
[2017-08-12] MEDS: ROSUVASTATIN 10 MG TABLET PO SCH (08:09)
[2017-08-12] MEDS: BUDESONIDE/FORMOTEROL 160-4.5 INHALER 6 GM INH SCH ×2 (08:11→20:18)
[2017-08-12] MEDS: INSULIN LISPRO 100 UNIT/ML SUBCUT SCH ×4 (08:15→20:56)
[2017-08-12] MEDS ORDERED: CYANOCOBALAMIN 500 MCG TABLET PO SCH (09:00)
[2017-08-12] MEDS ORDERED: NON-FORMULARY MEDICATION (Cranberry Conc/C/Bacill Coag [Cranberry Tablet] 1 EACH) PO SCH (09:00)
[2017-08-12] MEDS: LEVOFLOXACIN INJ 250 MG in PREMIX 1 EACH IV SCH (10:02)
[2017-08-12] MEDS: methylPREDNISolone SOD SUC 40 MG/1 ML VIAL IV SCH ×2 (12:47→21:09)
[2017-08-12] MEDS: AMPICILLIN IV SCH ×2 (17:38→21:08)
[2017-08-12] MEDS: SODIUM CHLORIDE 0.9% IV SCH ×2 (17:38→21:08)
[2017-08-12] MEDS: ENOXAPARIN 30 MG/0.3 ML SYRINGE SUBCUT SCH (20:18)
[2017-08-12] MEDS: DONEPEZIL 5 MG TABLET PO SCH (20:19)
[2017-08-12] MEDS: FAMOTIDINE 20 MG TABLET PO SCH (20:19)
[2017-08-13] MEDS: ALBUTEROL/IPRATROPIUM 3 ML NEB RESP TX SCH ×6 (01:22→23:23)
[2017-08-13] MEDS: AMPICILLIN IV SCH ×4 (02:30→20:28)
[2017-08-13] MEDS: SODIUM CHLORIDE 0.9% IV SCH ×4 (02:30→20:28)
[2017-08-13] MEDS: methylPREDNISolone SOD SUC 40 MG/1 ML VIAL IV SCH ×3 (05:35→20:27)
[2017-08-13] MEDS: INSULIN LISPRO 100 UNIT/ML SUBCUT SCH ×4 (09:42→20:40)
[2017-08-13] MEDS: CHOLECALCIFEROL 1,000 UNIT TABLET PO SCH (09:58)
[2017-08-13] MEDS: GABAPENTIN 600 MG TABLET PO SCH ×3 (09:58→20:45)
[2017-08-13] MEDS: PHENAZOPYRIDINE 95 MG TABLET PO SCH ×3 (09:58→20:44)
[2017-08-13] MEDS: MULTIVITAMIN (BEROCCA) TABLET PO SCH (09:58)
[2017-08-13] MEDS: ASPIRIN EC 81 MG TABLET PO SCH (09:59)
[2017-08-13] MEDS: METOPROLOL SUCCINATE XL 100 MG TABLET PO SCH (09:59)
[2017-08-13] MEDS: ROSUVASTATIN 10 MG TABLET PO SCH (09:59)
[2017-08-13] MEDS: CYPROHEPTADINE 4 MG TABLET PO SCH ×3 (09:59→20:45)
[2017-08-13] MEDS: ASCORBIC ACID 500 MG TABLET PO SCH (09:59)
[2017-08-13] MEDS: TRIAMTERENE/HCTZ 75-50 MG TABLET PO SCH (09:59)
[2017-08-13] MEDS: BUDESONIDE/FORMOTEROL 160-4.5 INHALER 6 GM INH SCH ×2 (10:03→20:43)
[2017-08-13] MEDS: NICOTINE 7 MG/24 HR PATCH TRANSDERM SCH (10:05)
[2017-08-13] MEDS: LEVOFLOXACIN INJ 250 MG in PREMIX 1 EACH IV SCH (12:32)
[2017-08-13] MEDS: ENOXAPARIN 30 MG/0.3 ML SYRINGE SUBCUT SCH (20:43)
[2017-08-13] MEDS: FAMOTIDINE 20 MG TABLET PO SCH (20:45)
[2017-08-13] MEDS: DONEPEZIL 5 MG TABLET PO SCH (20:45)
[2017-08-14] MEDS: ALBUTEROL/IPRATROPIUM 3 ML NEB RESP TX SCH ×2 (02:35→07:10)
[2017-08-14] MEDS: AMPICILLIN IV SCH ×2 (02:39→09:58)
[2017-08-14] MEDS: SODIUM CHLORIDE 0.9% IV SCH ×2 (02:39→09:58)
[2017-08-14] MEDS: methylPREDNISolone SOD SUC 40 MG/1 ML VIAL IV SCH (05:13)
[2017-08-14 05:31] LABS: Basophils % 0.1 % (0.0-0.8); Hemoglobin 13.8 GM/DL (12.0-16.0); Immature Granulocytes % 1.1 %; Immature Granulocytes Absolute 0.11 #; Lymphocytes % 9.8 % (21.3-54.2); Mean Corpuscular HGB Conc 31.4 GM/DL (32-36); Mean Corpuscular Hemoglobin 31 PG (27-34); Mean Corpuscular Volume 99.8 FL (87-102); Mean Platelet Volume 10.5 FL (9.6-12.0); Monocytes # 0.4 10*3/uL (0.11-0.8); Monocytes % 3.9 % (1.7-12.7); Neutrophils # 8.6 10*3/uL (1.4-7.4); Neutrophils % 85.1 % (38.7-73.9); Platelet Count 196 T/CUMM (130-400); Red Blood Count 4.41 MC/CUMM (3.8-5.5); Red Cell Distribution Width 14.3 % (9.3-17.3)
[2017-08-14 06:10] LABS: Calcium 9.1 MG/DL (8.5-10.1); Osmolality,Calculated 300.8 MOS/KG (273-304); Potassium 4.8 MMOL/L (3.5-5.1)
[2017-08-14] MEDS: INSULIN LISPRO 100 UNIT/ML SUBCUT SCH (07:32)
[2017-08-14 08:06] VITALS: BP 122/65
[2017-08-14] MEDS: MULTIVITAMIN (BEROCCA) TABLET PO SCH (09:58)
[2017-08-14] MEDS: ASPIRIN EC 81 MG TABLET PO SCH (09:58)
[2017-08-14] MEDS: TRIAMTERENE/HCTZ 75-50 MG TABLET PO SCH (09:59)
[2017-08-14] MEDS: BUDESONIDE/FORMOTEROL 160-4.5 INHALER 6 GM INH SCH (09:59)
[2017-08-14] MEDS: METOPROLOL SUCCINATE XL 100 MG TABLET PO SCH (09:59)
[2017-08-14] MEDS: CYPROHEPTADINE 4 MG TABLET PO SCH (09:59)
[2017-08-14] MEDS: NICOTINE 7 MG/24 HR PATCH TRANSDERM SCH (09:59)
[2017-08-14] MEDS: PHENAZOPYRIDINE 95 MG TABLET PO SCH (09:59)
[2017-08-14] MEDS: GABAPENTIN 600 MG TABLET PO SCH (09:59)
[2017-08-14] MEDS: ASCORBIC ACID 500 MG TABLET PO SCH (09:59)
[2017-08-14] MEDS: ROSUVASTATIN 10 MG TABLET PO SCH (09:59)
[2017-08-14] MEDS: CHOLECALCIFEROL 1,000 UNIT TABLET PO SCH (10:00)
== END 2017-08-14 10:04 | disposition home health service (06) | DRG 191 ==
LOC: N.ED 12:10 → N.EDINP 16:39 → N.2E 17:41
PROVIDERS: ADMIT Internal Medicine; ATTEND Internal Medicine

== ENCOUNTER 2017-09-10 12:40 | Inpatient (IN) ==
[2017-09-10 13:32] LABS: Basophils % 0.4 % (0.0-0.8); Eosinophils # 0.1 10*3/uL (0.0-0.87); Eosinophils % 1.1 % (0.00-10.9); Hemoglobin 12.5 GM/DL (12.0-16.0); Immature Granulocytes % 0.7 %; Immature Granulocytes Absolute 0.05 #; Lymphocytes # 2.5 10*3/uL (1.4-4.0); Lymphocytes % 32.5 % (21.3-54.2); Mean Corpuscular HGB Conc 31.3 GM/DL (32-36); Mean Corpuscular Hemoglobin 30 PG (27-34); Mean Corpuscular Volume 96.9 FL (87-102); Mean Platelet Volume 9.9 FL (9.6-12.0); Monocytes # 0.6 10*3/uL (0.11-0.8); Monocytes % 7.8 % (1.7-12.7); Neutrophils # 4.3 10*3/uL (1.4-7.4); Neutrophils % 57.5 % (38.7-73.9); Platelet Count 259 T/CUMM (130-400); Red Blood Count 4.13 MC/CUMM (3.8-5.5); Red Cell Distribution Width 14.1 % (9.3-17.3); White Blood Count 7.5 T/CUMM (4-12)
[2017-09-10 13:39] LABS: PT Patient Result 10.1 SECS; Partial Thromboplastin Time 21.5 SECS (0-40)
[2017-09-10 14:03] LABS: Alanine Aminotransferase 22 U/L (13-56); Albumin 2.7 G/DL (3.4-5.0); Alkaline Phosphatase 54 U/L (45-117); Aspartate Amino Transferase 22 U/L (0-37); Bilirubin,Total < 0.39 MG/DL (0.2-1.0); Blood Urea Nitrogen 36 MG/DL (7-18); Calcium 9.5 MG/DL (8.5-10.1); Glucose 86 MG/DL (74-106); Osmolality,Calculated 294.7 MOS/KG (273-304); Potassium 4.2 MMOL/L (3.5-5.1); Sodium 145 MMOL/L (136-145); Troponin I Only < 0.015 NG/ML (0.00-0.045)
[2017-09-10 14:49] LABS: Apearance,Urine CLEAR (Clear); Bilirubin,Urine Negative (Negative); Blood, Urine Negative (Negative); Glucose,Urine (UA) Negative (Negative); Hyaline Casts,Urine 1 /LPF (0-3); Ketones,Urine Negative (Negative); Mucus,Urine Occasional /LPF (Occasional); Nitrite,Urine Negative (Negative); Protein,Urine Negative; RBC,Urine <1 /HPF (0-4); Squamous Epithelial Cell,Urine Occasional /HPF (0-10); Urine Color Yellow (Yellow); Urine Urobilinogen < 2.0 EU/DL (0.2-1.0); WBC,Urine 16 /HPF (0-6)
[2017-09-10] MEDS ORDERED: DOCUSATE SODIUM 100 MG CAPSULE PO PRN (15:01)
[2017-09-10] MEDS ORDERED: NICOTINE 21 MG/24 HR PATCH TRANSDERM PRN (15:03)
[2017-09-10] MEDS ORDERED: ONDANSETRON 4 MG/2 ML VIAL IV PRN (15:03)
[2017-09-10] MEDS ORDERED: BISACODYL 5 MG TABLET PO PRN (15:03)
[2017-09-10] MEDS ORDERED: traZODone 50 MG TABLET PO PRN (15:03)
[2017-09-10] MEDS ORDERED: ALBUTEROL/IPRATROPIUM 3 ML NEB RESP TX PRN (15:06)
[2017-09-10] MEDS: ENOXAPARIN 30 MG/0.3 ML SYRINGE SUBCUT SCH (20:47)
[2017-09-10] MEDS: DIPYRIDAMOLE/ASPIRIN 200-25 MG CAPSULE PO SCH (20:47)
[2017-09-10] MEDS: FAMOTIDINE 20 MG TABLET PO SCH (20:47)
[2017-09-10] MEDS: BUDESONIDE/FORMOTEROL 160-4.5 INHALER 6 GM INH SCH (20:47)
[2017-09-10] MEDS: DONEPEZIL 5 MG TABLET PO SCH (20:47)
[2017-09-10] MEDS: GABAPENTIN 300 MG CAPSULE PO SCH (20:48)
[2017-09-10] MEDS: EZETIMIBE 10 MG TABLET PO SCH (20:48)
[2017-09-11 06:23] LABS: Calcium 8.6 MG/DL (8.5-10.1); Osmolality,Calculated 299.6 MOS/KG (273-304); Potassium 4.1 MMOL/L (3.5-5.1)
[2017-09-11] MEDS: DIPYRIDAMOLE/ASPIRIN 200-25 MG CAPSULE PO SCH ×2 (08:40→20:36)
[2017-09-11] MEDS: METOPROLOL SUCCINATE XL 100 MG TABLET PO SCH (08:41)
[2017-09-11] MEDS: ROSUVASTATIN 10 MG TABLET PO SCH (08:41)
[2017-09-11] MEDS: BUDESONIDE/FORMOTEROL 160-4.5 INHALER 6 GM INH SCH ×2 (08:42→20:38)
[2017-09-11] MEDS: SULFAMETHOX/TRIMETHOPRIM 800-160 MG TABLET PO SCH ×2 (09:46→20:36)
[2017-09-11] MEDS: DONEPEZIL 5 MG TABLET PO SCH (20:36)
[2017-09-11] MEDS: GABAPENTIN 300 MG CAPSULE PO SCH (20:36)
[2017-09-11] MEDS: FAMOTIDINE 20 MG TABLET PO SCH (20:36)
[2017-09-11] MEDS: ENOXAPARIN 30 MG/0.3 ML SYRINGE SUBCUT SCH (20:36)
[2017-09-11] MEDS: EZETIMIBE 10 MG TABLET PO SCH (20:38)
[2017-09-12 05:59] LABS: Risk Ratio 2.34; VLDL CHOLESTEROL 22.2 MG/DL
[2017-09-12] MEDS: BUDESONIDE/FORMOTEROL 160-4.5 INHALER 6 GM INH SCH (08:24)
[2017-09-12] MEDS: SULFAMETHOX/TRIMETHOPRIM 800-160 MG TABLET PO SCH (08:24)
[2017-09-12] MEDS: DIPYRIDAMOLE/ASPIRIN 200-25 MG CAPSULE PO SCH (08:24)
[2017-09-12] MEDS: ROSUVASTATIN 10 MG TABLET PO SCH (08:24)
[2017-09-12] MEDS: METOPROLOL SUCCINATE XL 100 MG TABLET PO SCH (08:24)
[2017-09-12 12:08] VITALS: BP 113/54
== END 2017-09-12 14:03 | disposition home health service (06) | DRG 690 ==
LOC: N.ED 12:40 → SUATTDRO 14:55 → N.EDINP 14:55 → N.2E 16:58
PROVIDERS: ADMIT Internal Medicine Cardiovascular Disease; ATTEND Internal Medicine

== ENCOUNTER 2019-01-29 10:01 | Observation (INO) ==
[2019-01-29] MEDS ORDERED: SODIUM CHLORIDE 0.9% 500 ML IV STA ×2 (10:42→13:10)
[2019-01-29] MEDS ORDERED: LORazepam 2 MG/1 ML VIAL IV STA (10:44)
[2019-01-29 11:37] LABS: Basophils # 0.1 10*3/uL (0.0-0.2); Basophils % 0.4 % (0.0-0.8); Eosinophils # 0.1 10*3/uL (0.0-0.87); Eosinophils % 1.1 % (0.00-10.9); Hematocrit 45.4 VOL% (35.7-47.0); Hemoglobin 14.7 GM/DL (12.0-16.0); Immature Granulocytes % 0.4 %; Immature Granulocytes Absolute 0.05 #; Lymphocytes # 2.3 10*3/uL (1.4-4.0); Lymphocytes % 19.4 % (21.3-54.2); Mean Corpuscular HGB Conc 32.4 GM/DL (32-36); Mean Corpuscular Volume 97.8 FL (87-102); Mean Platelet Volume 10.3 FL (9.6-12.0); Monocytes % 7.1 % (1.7-12.7); Neutrophils % 71.6 % (38.7-73.9); Platelet Count 173 T/CUMM (130-400); Red Blood Count 4.64 MC/CUMM (3.8-5.5); Red Cell Distribution Width 13.3 % (9.3-17.3); White Blood Count 11.6 T/CUMM (4-12)
[2019-01-29 11:55] LABS: Apearance,Urine CLEAR (Clear); Bilirubin,Urine Negative (Negative); Blood, Urine Negative (Negative); Glucose,Urine (UA) Negative (Negative); Ketones,Urine Negative (Negative); Mucus,Urine Occasional /LPF (Occasional); Nitrite,Urine Negative (Negative); Protein,Urine Negative; RBC,Urine 1 /HPF (0-4); Squamous Epithelial Cell,Urine Occasional /HPF (0-10); Urine Color Yellow (Yellow); Urine Specific Gravity 1.013 (1.001-1.035); Urine Urobilinogen < 2.0 EU/DL (0.2-1.0); WBC,Urine <1 /HPF (0-6)
[2019-01-29 12:02] LABS: Albumin 3.2 G/DL (3.4-5.0); Bilirubin,Total 0.8 MG/DL (0.2-1.0); Calcium 9.1 MG/DL (8.5-10.1)
[2019-01-29] MEDS ORDERED: NICOTINE 21 MG/24 HR PATCH TRANSDERM PRN (14:43)
[2019-01-29] MEDS ORDERED: guaiFENesin/DM ER 600-30 MG TABLET PO PRN (14:43)
[2019-01-29] MEDS ORDERED: ACETAMINOPHEN 325 MG TABLET PO PRN (14:43)
[2019-01-29] MEDS ORDERED: BISACODYL 5 MG TABLET PO PRN (14:43)
[2019-01-29] MEDS ORDERED: LORazepam 2 MG/1 ML VIAL IV PRN (14:43)
[2019-01-29] MEDS ORDERED: DOCUSATE SODIUM 100 MG CAPSULE PO PRN (14:43)
[2019-01-29] MEDS ORDERED: ONDANSETRON 4 MG/2 ML VIAL IV PRN (14:43)
[2019-01-29] MEDS ORDERED: AZITHROMYCIN INJ 500 MG in SODIUM CHLORIDE 0.9% 250 ML IV SCH (15:00)
[2019-01-29] MEDS: SODIUM CHLORIDE 0.9% 1,000 ML IV SCH (18:29)
[2019-01-29] MEDS: PANTOPRAZOLE 40 MG TABLET PO SCH (18:31)
[2019-01-29] MEDS: predniSONE 20 MG TABLET PO SCH (18:31)
[2019-01-29] MEDS: ENOXAPARIN 40 MG/0.4 ML SYRINGE SUBCUT SCH (18:32)
[2019-01-29] MEDS: cefTRIAXone 1,000 MG in SYRINGE 1 EACH IV SCH (18:34)
[2019-01-29] MEDS: ALBUTEROL/IPRATROPIUM 3 ML NEB RESP TX SCH (19:46)
[2019-01-29] MEDS: BUDESONIDE/FORMOTEROL 160-4.5 INHALER 6 GM INH SCH (21:29)
[2019-01-29] MEDS: GABAPENTIN 600 MG TABLET PO SCH (22:11)
[2019-01-30] MEDS: ALBUTEROL/IPRATROPIUM 3 ML NEB RESP TX SCH ×3 (00:50→13:55)
[2019-01-30 05:48] LABS: Calcium 8.1 MG/DL (8.5-10.1); Osmolality,Calculated 296.8 MOS/KG (273-304); Thyroid Stimulating Hormone 0.303 uIU/ml (0.358-3.74)
[2019-01-30 06:10] LABS: Vitamin B12 > 2000 PG/ML (211-911)
[2019-01-30] MEDS: SODIUM CHLORIDE 0.9% 1,000 ML IV SCH (07:53)
[2019-01-30] MEDS ORDERED: ASPIRIN EC 81 MG TABLET PO SCH (09:00)
[2019-01-30] MEDS ORDERED: CYANOCOBALAMIN 500 MCG TABLET PO SCH (09:00)
[2019-01-30] MEDS ORDERED: CHOLECALCIFEROL 1,000 UNIT TABLET PO SCH (09:00)
[2019-01-30] MEDS ORDERED: POTASSIUM CHLORIDE 20 MEQ TABLET PO SCH (09:00)
[2019-01-30] MEDS: PANTOPRAZOLE 40 MG TABLET PO SCH (09:16)
[2019-01-30] MEDS: GABAPENTIN 600 MG TABLET PO SCH ×2 (09:16→15:33)
[2019-01-30] MEDS: predniSONE 20 MG TABLET PO SCH (09:16)
[2019-01-30] MEDS: BUDESONIDE/FORMOTEROL 160-4.5 INHALER 6 GM INH SCH (09:17)
[2019-01-30] MEDS: cefTRIAXone 1,000 MG in SYRINGE 1 EACH IV SCH (15:28)
[2019-01-30] MEDS: ENOXAPARIN 40 MG/0.4 ML SYRINGE SUBCUT SCH (15:33)
[2019-01-30 16:36] VITALS: BP 103/53
== END 2019-01-30 16:38 | disposition home or self-care (01) ==
LOC: N.ED 10:01 → N.EDINP 10:01 → N.4E 16:50
PROVIDERS: ADMIT Family Medicine; ATTEND Family Medicine

== ENCOUNTER 2019-07-17 12:11 | Inpatient (IN) ==
[2019-07-17] MEDS ORDERED: SODIUM CHLORIDE 0.9% 1,000 ML IV STA ×2 (13:11→15:12)
[2019-07-17 13:28] LABS: Bilirubin,Total 0.7 MG/DL (0.2-1.0); Calcium 9.1 MG/DL (8.5-10.1); Osmolality,Calculated 279.8 MOS/KG (273-304); Total Protein 7.1 G/DL (6.4-8.3)
[2019-07-17 13:29] LABS: Basophils # 0.1 10*3/uL (0.0-0.2); Basophils % 0.6 % (0.0-0.8); Eosinophils # 0.1 10*3/uL (0.0-0.87); Eosinophils % 0.7 % (0.00-10.9); Hematocrit 40.5 VOL% (35.7-47.0); Immature Granulocytes % 0.3 %; Immature Granulocytes Absolute 0.04 #; Lymphocytes # 2.7 10*3/uL (1.4-4.0); Lymphocytes % 22.1 % (21.3-54.2); Mean Corpuscular HGB Conc 32.1 GM/DL (32-36); Mean Corpuscular Volume 100.7 FL (87-102); Mean Platelet Volume 9.6 FL (9.6-12.0); Monocytes % 9.3 % (1.7-12.7); Platelet Count 198 T/CUMM (130-400); Red Blood Count 4.02 MC/CUMM (3.8-5.5); Red Cell Distribution Width 14.6 % (9.3-17.3); White Blood Count 12.4 T/CUMM (4-12)
[2019-07-17 14:14] LABS: Apearance,Urine Slightly Hazy (Clear); Bilirubin,Urine Negative (Negative); Blood, Urine Small mg/dL (Negative); Glucose,Urine (UA) Negative (Negative); Ketones,Urine Negative (Negative); Nitrite,Urine Negative (Negative); Protein,Urine Negative; RBC,Urine 2 /HPF (0-4); Squamous Epithelial Cell,Urine Occasional /HPF (0-10); Urine Color Yellow (Yellow); Urine Specific Gravity 1.013 (1.001-1.035); Urine Urobilinogen < 2.0 EU/DL (0.2-1.0); WBC,Urine 29 /HPF (0-6)
[2019-07-17] MEDS ORDERED: cefTRIAXone 1,000 MG in SODIUM CHLORIDE 0.9% 100 ML IV STA (14:28)
[2019-07-17] MEDS ORDERED: ACETAMINOPHEN 325 MG TABLET PO PRN (14:41)
[2019-07-17] MEDS ORDERED: ONDANSETRON 4 MG/2 ML VIAL IV PRN (14:41)
[2019-07-17] MEDS ORDERED: guaiFENesin/CODEINE 5 ML LIQUID PO PRN (16:13)
[2019-07-17] MEDS ORDERED: DOCUSATE SODIUM 100 MG CAPSULE PO PRN (16:15)
[2019-07-17] MEDS: AZITHROMYCIN INJ 500 MG in SODIUM CHLORIDE 0.9% 250 ML IV SCH (17:17)
[2019-07-17] MEDS: NICOTINE 21 MG/24 HR PATCH TRANSDERM SCH (17:19)
[2019-07-17] MEDS ORDERED: SODIUM CHLORIDE 0.9% 500 ML IV ONE (18:59)
[2019-07-17] MEDS: ALBUTEROL/IPRATROPIUM 3 ML NEB RESP TX SCH (19:37)
[2019-07-17] MEDS: SODIUM CHLORIDE 0.9% 1,000 ML IV SCH (19:55)
[2019-07-17] MEDS: CYPROHEPTADINE 4 MG TABLET PO SCH (22:03)
[2019-07-17] MEDS: cilostazoL 50 MG TABLET PO SCH (22:03)
[2019-07-17] MEDS: RANITIDINE 150 MG TABLET PO SCH (22:03)
[2019-07-17] MEDS: EZETIMIBE 10 MG TABLET PO SCH (22:03)
[2019-07-17] MEDS: MELATONIN 3 MG TABLET PO SCH (22:04)
[2019-07-17] MEDS: DONEPEZIL 5 MG TABLET PO SCH (22:04)
[2019-07-17] MEDS: GABAPENTIN 300 MG CAPSULE PO SCH (22:04)
[2019-07-17] MEDS: ROSUVASTATIN 10 MG TABLET PO SCH (22:04)
[2019-07-17] MEDS: traMADol 50 MG TABLET PO PRN (22:21)
[2019-07-17] MEDS ORDERED: MAGNESIUM SULF RIDER 4 GM in PREMIX 1 EACH IV PRN (23:49)
[2019-07-17] MEDS ORDERED: MAGNESIUM SULF RIDER 2 GM in PREMIX 1 EACH IV ONE (23:49)
[2019-07-17] MEDS ORDERED: POTASSIUM CHLORIDE 20 MEQ TABLET PO PRN (23:49)
[2019-07-17 23:58] LABS: Calcium 8.2 MG/DL (8.5-10.1); Osmolality,Calculated 290.8 MOS/KG (273-304)
[2019-07-17] MEDS ORDERED: MAGNESIUM SULF RIDER 2 GM in PREMIX 1 EACH IV PRN (23:58)
[2019-07-18] MEDS: ALBUTEROL/IPRATROPIUM 3 ML NEB RESP TX SCH ×3 (02:08→13:35)
[2019-07-18 03:51] LABS: Calcium 7.8 MG/DL (8.5-10.1); Osmolality,Calculated 287.1 MOS/KG (273-304); Risk Ratio 1.35; Thyroid Stimulating Hormone 2.22 uIU/ml (0.358-3.74)
[2019-07-18 06:16] LABS: Basophils % 0.4 % (0.0-0.8); Eosinophils # 0.1 10*3/uL (0.0-0.87); Eosinophils % 1.1 % (0.00-10.9); Hematocrit 34.3 VOL% (35.7-47.0); Hemoglobin 10.7 GM/DL (12.0-16.0); Immature Granulocytes % 0.4 %; Immature Granulocytes Absolute 0.04 #; Lymphocytes # 2.3 10*3/uL (1.4-4.0); Lymphocytes % 24.1 % (21.3-54.2); Mean Corpuscular HGB Conc 31.2 GM/DL (32-36); Mean Corpuscular Volume 103.6 FL (87-102); Monocytes % 9.6 % (1.7-12.7); Neutrophils % 64.4 % (38.7-73.9); Platelet Count 167 T/CUMM (130-400); Red Blood Count 3.31 MC/CUMM (3.8-5.5); Red Cell Distribution Width 14.7 % (9.3-17.3); White Blood Count 9.7 T/CUMM (4-12)
[2019-07-18] MEDS: GABAPENTIN 300 MG CAPSULE PO SCH ×2 (08:38→20:51)
[2019-07-18] MEDS: SODIUM CHLORIDE 0.9% 1,000 ML IV SCH ×2 (08:40→22:45)
[2019-07-18] MEDS: CYANOCOBALAMIN 500 MCG TABLET PO SCH (08:41)
[2019-07-18] MEDS: PANTOPRAZOLE 40 MG TABLET PO SCH (08:41)
[2019-07-18] MEDS: cilostazoL 50 MG TABLET PO SCH ×2 (08:42→20:50)
[2019-07-18] MEDS: cefTRIAXone 1,000 MG in SYRINGE 1 EACH IV SCH (08:43)
[2019-07-18] MEDS: allopurinoL 100 MG TABLET PO SCH (08:43)
[2019-07-18] MEDS: ENOXAPARIN 30 MG/0.3 ML SYRINGE SUBCUT SCH (08:43)
[2019-07-18] MEDS: ASPIRIN EC 81 MG TABLET PO SCH (08:43)
[2019-07-18] MEDS: CHOLECALCIFEROL 1,000 UNIT TABLET PO SCH (08:43)
[2019-07-18] MEDS: NICOTINE 21 MG/24 HR PATCH TRANSDERM SCH (08:47)
[2019-07-18] MEDS: CYPROHEPTADINE 4 MG TABLET PO SCH ×2 (08:50→20:50)
[2019-07-18] MEDS: traMADol 50 MG TABLET PO PRN (11:10)
[2019-07-18] MEDS: AZITHROMYCIN INJ 500 MG in SODIUM CHLORIDE 0.9% 250 ML IV SCH (17:05)
[2019-07-18] MEDS: DONEPEZIL 5 MG TABLET PO SCH (20:50)
[2019-07-18] MEDS: EZETIMIBE 10 MG TABLET PO SCH (20:50)
[2019-07-18] MEDS: RANITIDINE 150 MG TABLET PO SCH (20:50)
[2019-07-18] MEDS: MELATONIN 3 MG TABLET PO SCH (20:50)
[2019-07-18] MEDS: ROSUVASTATIN 10 MG TABLET PO SCH (20:50)
[2019-07-19] MEDS: ALBUTEROL/IPRATROPIUM 3 ML NEB RESP TX SCH ×5 (00:33→20:48)
[2019-07-19 05:41] LABS: Basophils % 0.5 % (0.0-0.8); Eosinophils # 0.2 10*3/uL (0.0-0.87); Eosinophils % 1.9 % (0.00-10.9); Hematocrit 33.4 VOL% (35.7-47.0); Hemoglobin 10.5 GM/DL (12.0-16.0); Immature Granulocytes % 0.5 %; Immature Granulocytes Absolute 0.04 #; Lymphocytes # 2.2 10*3/uL (1.4-4.0); Lymphocytes % 26.1 % (21.3-54.2); Mean Corpuscular HGB Conc 31.4 GM/DL (32-36); Mean Corpuscular Volume 103.4 FL (87-102); Monocytes % 8.7 % (1.7-12.7); Neutrophils % 62.3 % (38.7-73.9); Platelet Count 170 T/CUMM (130-400); Red Blood Count 3.23 MC/CUMM (3.8-5.5); Red Cell Distribution Width 14.4 % (9.3-17.3); White Blood Count 8.5 T/CUMM (4-12)
[2019-07-19 06:06] LABS: Calcium 8.3 MG/DL (8.5-10.1); Osmolality,Calculated 283.1 MOS/KG (273-304)
[2019-07-19] MEDS: cefTRIAXone 1,000 MG in SYRINGE 1 EACH IV SCH (08:15)
[2019-07-19] MEDS: CYANOCOBALAMIN 500 MCG TABLET PO SCH (08:16)
[2019-07-19] MEDS: cilostazoL 50 MG TABLET PO SCH ×2 (08:16→21:47)
[2019-07-19] MEDS: CYPROHEPTADINE 4 MG TABLET PO SCH ×2 (08:16→21:49)
[2019-07-19] MEDS: allopurinoL 100 MG TABLET PO SCH (08:17)
[2019-07-19] MEDS: ENOXAPARIN 30 MG/0.3 ML SYRINGE SUBCUT SCH (08:17)
[2019-07-19] MEDS: PANTOPRAZOLE 40 MG TABLET PO SCH (08:17)
[2019-07-19] MEDS: GABAPENTIN 300 MG CAPSULE PO SCH ×2 (08:17→21:48)
[2019-07-19] MEDS: ASPIRIN EC 81 MG TABLET PO SCH (08:17)
[2019-07-19] MEDS: CHOLECALCIFEROL 1,000 UNIT TABLET PO SCH (08:17)
[2019-07-19] MEDS: NICOTINE 21 MG/24 HR PATCH TRANSDERM SCH (08:17)
[2019-07-19] MEDS: AZITHROMYCIN 250 MG TABLET PO SCH (08:17)
[2019-07-19] MEDS: SODIUM CHLORIDE 0.9% 1,000 ML IV SCH (11:10)
[2019-07-19] MEDS: traMADol 50 MG TABLET PO PRN (14:01)
[2019-07-19] MEDS: MELATONIN 3 MG TABLET PO SCH (21:47)
[2019-07-19] MEDS: RANITIDINE 150 MG TABLET PO SCH (21:47)
[2019-07-19] MEDS: EZETIMIBE 10 MG TABLET PO SCH (21:47)
[2019-07-19] MEDS: DONEPEZIL 5 MG TABLET PO SCH (21:48)
[2019-07-19] MEDS: ROSUVASTATIN 10 MG TABLET PO SCH (21:48)
[2019-07-20] MEDS: ALBUTEROL/IPRATROPIUM 3 ML NEB RESP TX SCH ×4 (00:10→20:51)
[2019-07-20] MEDS: SODIUM CHLORIDE 0.9% 1,000 ML IV SCH ×2 (02:40→18:09)
[2019-07-20] MEDS: allopurinoL 100 MG TABLET PO SCH (09:11)
[2019-07-20] MEDS: CYANOCOBALAMIN 500 MCG TABLET PO SCH (09:11)
[2019-07-20] MEDS: GABAPENTIN 300 MG CAPSULE PO SCH ×2 (09:11→20:36)
[2019-07-20] MEDS: ENOXAPARIN 30 MG/0.3 ML SYRINGE SUBCUT SCH (09:12)
[2019-07-20] MEDS: NICOTINE 21 MG/24 HR PATCH TRANSDERM SCH (09:12)
[2019-07-20] MEDS: PANTOPRAZOLE 40 MG TABLET PO SCH (09:12)
[2019-07-20] MEDS: ASPIRIN EC 81 MG TABLET PO SCH (09:12)
[2019-07-20] MEDS: CHOLECALCIFEROL 1,000 UNIT TABLET PO SCH (09:12)
[2019-07-20] MEDS: cilostazoL 50 MG TABLET PO SCH ×2 (09:12→20:33)
[2019-07-20] MEDS: CYPROHEPTADINE 4 MG TABLET PO SCH ×2 (09:12→20:33)
[2019-07-20] MEDS: cefTRIAXone 1,000 MG in SYRINGE 1 EACH IV SCH (09:12)
[2019-07-20] MEDS: AZITHROMYCIN 250 MG TABLET PO SCH (09:22)
[2019-07-20] MEDS: traMADol 50 MG TABLET PO PRN (18:24)
[2019-07-20] MEDS: DONEPEZIL 5 MG TABLET PO SCH (20:33)
[2019-07-20] MEDS: RANITIDINE 150 MG TABLET PO SCH (20:33)
[2019-07-20] MEDS: MELATONIN 3 MG TABLET PO SCH (20:33)
[2019-07-20] MEDS: ROSUVASTATIN 10 MG TABLET PO SCH (20:33)
[2019-07-20] MEDS: EZETIMIBE 10 MG TABLET PO SCH (20:33)
[2019-07-21] MEDS: ALBUTEROL/IPRATROPIUM 3 ML NEB RESP TX SCH ×2 (01:56→07:46)
[2019-07-21] MEDS: SODIUM CHLORIDE 0.9% 1,000 ML IV SCH ×2 (05:40→09:48)
[2019-07-21] MEDS: CYANOCOBALAMIN 500 MCG TABLET PO SCH (09:45)
[2019-07-21] MEDS: CHOLECALCIFEROL 1,000 UNIT TABLET PO SCH (09:46)
[2019-07-21] MEDS: CYPROHEPTADINE 4 MG TABLET PO SCH (09:46)
[2019-07-21] MEDS: ASPIRIN EC 81 MG TABLET PO SCH (09:46)
[2019-07-21] MEDS: AZITHROMYCIN 250 MG TABLET PO SCH (09:46)
[2019-07-21] MEDS: allopurinoL 100 MG TABLET PO SCH (09:46)
[2019-07-21] MEDS: cilostazoL 50 MG TABLET PO SCH (09:46)
[2019-07-21] MEDS: cefTRIAXone 1,000 MG in SYRINGE 1 EACH IV SCH (09:47)
[2019-07-21] MEDS: GABAPENTIN 300 MG CAPSULE PO SCH (09:47)
[2019-07-21] MEDS: ENOXAPARIN 30 MG/0.3 ML SYRINGE SUBCUT SCH (09:48)
[2019-07-21] MEDS: NICOTINE 21 MG/24 HR PATCH TRANSDERM SCH (09:51)
[2019-07-21] MEDS: PANTOPRAZOLE 40 MG TABLET PO SCH (10:02)
[2019-07-21 12:21] VITALS: BP 147/65
== END 2019-07-21 15:14 | disposition home health service (06) | DRG 871 ==
LOC: N.ED 12:11 → N.EDINP 14:40 → N.2E 15:20 → N.CC 15:48 → N.5E 07-18 18:50
PROVIDERS: ADMIT Internal Medicine; ATTEND Internal Medicine